=== PATIENT | female | born 1990 | race Two or more races ===

== ENCOUNTER → 2020-12-24 15:05 | Outpatient (BNVA) | payer OTHER, SELFPAY | PROVIDERS: Visit Provider Internal Medicine | DX: K29.70 Gastritis, unspecified, without bleeding (principal); B96.81 Helicobacter pylori [H. pylori] as the cause of diseases classified elsewhere | CPT/HCPCS: 99202 ==

== ENCOUNTER → 2022-03-23 14:49 | Outpatient (BNVA) | payer OTHER, SELFPAY | PROVIDERS: Visit Provider Nurse Practitioner Family | DX: G43.909 Migraine, unspecified, not intractable, without status migrainosus (principal); G44.309 Post-traumatic headache, unspecified, not intractable; F07.81 Postconcussional syndrome; M54.2 Cervicalgia | CPT/HCPCS: 99202 ==

== ENCOUNTER 2022-04-21 15:14 | Outpatient (REF) | payer OTHER, SELFPAY ==
--- NOTE | ~2022-04-21 | XR_ITS ---
EXAMINATION: XR CERVICAL SPINE CLINICAL INFORMATION: Cervicalgia COMPARISON: None TECHNIQUE: 6 views of the cervical spine, inclusive of flexion and extension views, were obtained. FINDINGS: The vertebral alignment is normal. No intrinsic bony abnormality. The disc heights and neural foramina are well maintained. The endplates and posterior elements are normal. No fracture or subluxation. The surrounding prevertebral soft tissues are unremarkable. XR/XR cervical spine w flex/ext IMPRESSION: Normal examination of the cervical spine.
== END 2022-04-21 15:15 | disposition home or self-care (01) ==
LOC: HO.XRAY 15:14
PROVIDERS: PCP Internal Medicine; Visit Provider Nurse Practitioner Family
DX: M54.2 Cervicalgia (principal)
CPT/HCPCS: 72052

== ENCOUNTER → 2022-05-28 14:20 | Outpatient (BNVA) | payer OTHER, SELFPAY | PROVIDERS: PCP Internal Medicine; Visit Provider Nurse Practitioner Family | DX: G43.909 Migraine, unspecified, not intractable, without status migrainosus (principal); M54.2 Cervicalgia; M26.609 Unspecified temporomandibular joint disorder, unspecified side; F07.81 Postconcussional syndrome; F45.8 Other somatoform disorders | CPT/HCPCS: 99212 ==

== ENCOUNTER 2024-04-26 13:52 | Outpatient (REF) | payer OTHER, SELFPAY ==
[2024-04-26 17:36] LABS: MANUAL DIFF FLAG NO
[2024-04-26 17:57] LABS: Basophils Percent Auto 0.6 % (0-2); Eosinophils Absolute Auto 0.1 X10*3/uL (0.0-0.4); Eosinophils Percent Auto 2.3 % (0-4); Hematocrit 35.2 % (37.0-47.0); Imm Gran Abs Auto 0.01 X10*3/uL (0.00-0.03); Imm Gran Pct Auto 0.2 % (0.0-0.4); Lymphocytes Absolute Auto 2.3 X10*3/uL (1.2-4.9); Mean Corpuscular HGB Conc 31.3 g/dl (31.0-35.0); Mean Corpuscular Hemoglobin 27.9 pg (27.0-33.0); Mean Corpuscular Volume 89.3 fL (80.0-98.0); Mean Platelet Volume 10.7 fL (9.4-12.3); Monocytes Absolute Auto 0.4 X10*3/uL (0.1-1.2); Monocytes Percent Auto 8.4 % (2-11); Neutrophils Absolute Auto 1.9 x10*3/uL (2.0-8.3); Neutrophils Percent Auto 39.5 % (45-73); Platelet Count 208 X10*3/uL (160-400); Red Blood Count 3.94 X10*6/uL (4.20-5.50); Red Cell Distribution Width 13.1 % (11.0-16.0); White Blood Count 4.8 X10*3/uL (4.8-10.8)
[2024-04-26 18:11] LABS: Rheumatoid Factor < 13.0 IU/mL (<15.0)
[2024-04-26 18:41] LABS: Folate 6.1 ng/mL (> or = 4.0); Vitamin B12 675 pg/mL (200-900)
[2024-04-26 18:46] LABS: Erythrocyte Sedimentation Rate 25 MM/HR (0-20)
[2024-04-26 19:31] LABS: Alanine Aminotransferase 35 U/L (0-31); Albumin Level 4.1 g/dL (3.5-5.0); Alkaline Phosphatase 48 U/L (39-117); Anion Gap 13 (12-20); Aspartate Amino Transferase 26 U/L (5-31); Bilirubin Total 0.2 mg/dL (0.0-1.0); Blood Urea Nitrogen 12 mg/dL (9-16); Carbon Dioxide 25 mmol/L (22-29); Chloride 107 mmol/L (96-108); Estimated Glomerular Filt Rate > 60; Glucose Random 57 mg/dL (60-115); Potassium 4.2 mmol/L (3.3-5.1); Sodium 141 mmol/L (135-145); Total Protein 7.4 g/dL (6.5-8.0)
[2024-04-27 19:19] LABS: CRP High Sensitivity 1.1 mg/L
[2024-04-30 09:33] LABS: Anti Nuclear Antibody Screen NEGATIVE (NEGATIVE)
== END 2024-04-26 13:53 | disposition home or self-care (01) ==
LOC: HO.HKASLDS 13:52
PROVIDERS: PCP Internal Medicine Hematology & Oncology; Visit Provider Nurse Practitioner Family
DX: G44.85 Primary stabbing headache (principal); D50.9 Iron deficiency anemia, unspecified
CPT/HCPCS: 36415; 80053; 82607; 82746; 85025; 85652; 86038; 86141; 86431; 99212

== ENCOUNTER 2024-04-26 13:52 | Outpatient (AMB) | payer OTHER, SELFPAY ==
[2024-04-26 13:57] VITALS: BP 107/70; PULSE 65; O2SAT 99; BMI 23.9
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
== END 2024-04-26 15:00 | disposition home or self-care (01) ==
PROVIDERS: PCP Internal Medicine Hematology & Oncology; Visit Provider Nurse Practitioner Family
DX: M26.609 Unspecified temporomandibular joint disorder, unspecified side (principal); F45.8 Other somatoform disorders; R22.0 Localized swelling, mass and lump, head; F07.81 Postconcussional syndrome; M54.2 Cervicalgia; G44.85 Primary stabbing headache
CPT/HCPCS: 99214

== ENCOUNTER 2024-06-25 13:44 | Outpatient (REF) | payer OTHER, SELFPAY ==
--- NOTE | ~2024-06-25 | MR_ITS ---
EXAMINATION: MR BRAIN WITHOUT AND WITH CONTRAST CLINICAL INFORMATION: Stabbing headache. COMPARISON: None available. TECHNIQUE: Multiplanar, multisequence MRI of the brain was obtained before and after the intravenous administration of 5.5 mL of Gadavist. FINDINGS: There is no restricted diffusion visualized to suspect any acute ischemic changes. No magnetic susceptibility artifact either to suspect acute or chronic hemorrhagic products or calcium there is focal T2 FLAIR signal change in the deep white matter of right frontal lobe without mass effect. The otto to white matter differentiation is maintained normal. The lateral ventricles are symmetrical but generous in size. There is asymmetric enlarged left inferior cerebellar hemisphere with a prominent right para midline cisterna magna. There is normal flow-void signal seen in major cerebral vasculature. Sella and parasellar regions are normal. There is moderate mucoperiosteal thickening left maxillary sinus. Rest of the paranasal sinuses are widely patent. The mastoid sinuses are clear. The bone marrow signal and the scalp soft tissues are normal. Bilateral optic globe, optic nerves are symmetrical and normal. Incidental finding of deviated nasal septum to right with hypertrophic left inferior turbinate. Post gadolinium there is no intra-axial or extra-axial enhancement or masses. MR/MR head/brain wo/w con IMPRESSION: No acute intracranial process seen. Asymmetric hypovolemic right cerebral hemisphere with prominent right para midline cisterna magna. Deviated nasal septum to the right with hypertrophic left inferior turbinate. Chronic inflammatory process left maxillary sinus. Electronically signed by: Chalo Delcid MD 06/27/2024 08:47 AM EDT
[2024-06-25] MEDS: gadobutroL 7.5 ML VIAL IVPUSH (14:27)
== END 2024-06-25 13:45 | disposition home or self-care (01) ==
LOC: HO.MRI 13:44
PROVIDERS: PCP Internal Medicine; Visit Provider Nurse Practitioner Family
DX: G44.85 Primary stabbing headache (principal); R22.0 Localized swelling, mass and lump, head; G44.309 Post-traumatic headache, unspecified, not intractable
CPT/HCPCS: 70553; A9585

== ENCOUNTER → 2024-06-25 13:44 | Outpatient (BNV) | payer OTHER, SELFPAY | PROVIDERS: PCP Internal Medicine; Visit Provider Radiology Diagnostic Radiology | DX: J34.2 Deviated nasal septum (principal); I69.351 Hemiplegia and hemiparesis following cerebral infarction affecting right dominant side; J32.0 Chronic maxillary sinusitis | CPT/HCPCS: 70553 ==

== ENCOUNTER 2024-07-31 13:38 | Outpatient (REF) | payer OTHER, SELFPAY ==
--- NOTE | ~2024-07-31 | MR_ITS ---
EXAMINATION: MR VENOGRAM BRAIN WITH IV CONTRAST. CLINICAL INFORMATION: Primary stabbing headache. TECHNIQUE: Coronal 2-D [id number]. Sagittal and coronal vessel PC. Sagittal twist. Total of 10 cc gadolinium-based given IV without reported immediate complications COMPARISON: None FINDINGS: Superior sagittal sinus is patent without intraluminal filling defect. Internal cerebral veins are patent without intraluminal filling defects. Vein of Manuel and straight sinus are patent without intraluminal filling defects. Torcula is patent without intraluminal filling defect. Transverse sinuses, sigmoid sinuses and jugular bulbs are patent without intraluminal filling defects. Asymmetric volume loss right cerebellum. MR/MR venography head wo/w con IMPRESSION: No main cerebral venous sinus thrombosis. Negative exam. Electronically signed by: Jose Manuel [place] MD 08/01/2024 07:14 AM EDT
[2024-07-31] MEDS: gadobutroL 10 ML VIAL IVPUSH (14:10)
--- OUTSIDE RECORDS SUMMARY | 2024-07-31 15:48 | XMS_ITS | Encounter Summary ---
Author Organization [place] [address] Care Team Providers Care Field Representatives Director Name Role Phone Sheng May MD Primary Care Provider [phone] Reason for Visit * Reason Onset Date Comments Labs Only 07/27/2024 Encounter Details Date Type Department Care Team (Late st Contact Info) Description 07/27/2024 Telephone Adult Medicine [address] [phone] Sheng May MD [address] [place] [id number] Labs Only Social History Tobacco Use Types Packs/Day Years Used Date Smoking Tobacco: Former Cigarettes Q uit: 11/26/2012 Smokeless Tobacco: Never Alcohol Use Standard Drinks/Week Comments Yes 0 (1 standard drink = 0.6 oz pur e alcohol) Comments No Sex and Gender Information Value Date Recorded Sex Assigned at Not on file Legal Sex Female 5:31 AM EST Gender Identity Not on file Sexual Orientation Not on file documented as of this encounter Progress Notes * Sheng May MD - 07/27/2024 5:38 PM EDT Please inform the patient that QuantiFERON test is ordered and she can go to the lab anytime * Liberty Mendez MA - 07/27/2024 4:00 PM EDT Last OV/ PE 03/29/24 Lalo OV none scheduled. * Veronica Betancourt - 07/27/2024 3:27 PM EDT Patient needs Quantiferon Gold ordered for employer. Please call patient when ordered. Needs SHAYNE. documented in this encounter Plan of Treatment Upcoming Encounters Date Type Department Care Team (Late st Contact Info) Description 10/31/2024 10:55 AM EDT Appointment Radiology Department [address] [phone] Scheduled Orders Name Type Priority Associated Diagnoses Orde r Schedule Interferon gamma for TB, qualitative Lab Routine Encounter for pre-employment examination 1 Occurrences starting 07/27/2024 until 07/27/2025 documented as of this encounter Visit Diagnoses Diagnosis Encounter for pre-employment examination- Primary documented in this encounter Care Teams Field Representatives Director Relationship Specialty Start Date End Date Sheng May MD [address] [place] [address] PCP - General Internal Medicine 10/01/21 documented as of this encounter
--- OUTSIDE RECORDS SUMMARY | 2024-07-31 15:48 | XMS_ITS | Clinical Summary ---
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 4 Active omeprazole-amoxic ill-rifabutin (Talicia) 10-250-12.5 mg capsule,IR - delay rel,biphase Take 4 capsules by mouth every 8 (eight) hours. 4 Active aspirin-acetamino phen-caffeine (EXCEDRIN MIGRAINE) 250-250-65 mg per tablet Take 1 Tablet by mouth every 6 hours as needed (mild to moderate headaches). 4 Active docusate sodium (COLACE) 100 mg capsule Take 1 Capsule by mouth 2 times daily as needed for Constipation. 4 Active SUMAtriptan (IMITREX) 50 mg tablet Take 1 tablet for severe headache, may repeat dose once after 2 hours, if needed. 4 Active albuterol HFA (PROAIR HFA ; PROVENTIL HFA ; VENTOLIN HFA) 90 mcg/actuation inhalerIndication s:Mild intermittent asthma without complication Inhale 2 puffs by mouth every 4 (four) hours if needed for wheezing (or cough). 6.7 g 3 4 Active cholecalciferol (VITAMIN D-3) 50 mcg (2,000 unit) tablet Take 1 tablet (2,000 Units total) by mouth 1 (one) time each day. 90 tablet 3 4 Active FLUoxetine (PROzac) 10 mg tablet Take 1 tablet (10 mg total) by mouth 1 (one) time each day. 90 tablet 1 4 Active magnesium oxide (MAG-OX) 400 mg (241.3 elemental magnesium) tablet Take 1 tablet (400 mg total) by mouth 1 (one) time each day. 90 tablet 3 4 Active riboflavin (VITAMIN B2) 400 mg tablet Take 1 tablet (400 mg total) by mouth 1 (one) time each day. 90 tablet 3 4 Active omeprazole (PriLOSEC) [address] capsule Take 1 capsule (40 mg total) by mouth 1 (one) time each day. 90 capsule 1 4 Active cyanocobalamin (VITAMIN B-12) 1,000 mcg tablet Take 1 tablet (1,000 mcg total) by mouth 1 (one) time each day. 90 tablet 3 4 03/29/20 25 Active nicotine (NICODERM CQ) 14 mg/[address] 1 patch on the skin 1 (one) time each day at the same time. 30 each 1 4 Active ferrous sulfate 325 mg (65 mg iron) EC tablet Take 1 tablet (325 mg total) by mouth 1 (one) time each day with breakfast. Do not crush, chew, or split. 90 each 1 4 Active folic acid (FOLVITE) 1 mg tablet Take 1 tablet (1 mg total) by mouth 1 (one) time each day. 90 each 1 4 Active vit,jelena 63-tynk-juddq 27 mg iron- 1 mg tablet Take 1 tablet by mouth 1 (one) time each day. 30 each 5 04/27/19 26 Active Active Problems Problem Noted Date Diagnosed Date Nephrolithiasis 03/09/2024 Constipation 02/02/2024 Migraine without status migrainosus, not intract able 02/02/2024 Dysphagia 01/18/2024 H. pylori infection 01/18/2024 Helicobacter positive gastritis 01/18/2024 Gastroesophageal reflux disease without esophagi tis 04/28/2023 Prediabetes 04/28/2023 Marijuana use during 10/30/2022 Overview (01/18/2024): 10/30/22: states using for nausea; encouraged to d/c use; risks reviewed. Will try vit B6 and unisom Breast tenderness 06/11/2022 Overview (01/18/2024): Last Assessment & Plan: Patient instructed to avoid fatty foods and caffeine in her diet. Encouraged to wear a tight fitting bra. Reassured that exam is normal today. Wheezing 10/10/2020 ASCUS with positive high risk HPV cervical 07/08 Overview (01/18/2024): 06/26/2016 [place]ear ASCUS HR HPV + 05/26/2019 Paps[place]ear ASCUS HR HPV + 07/25/2019 Colposcopy DANNIELLE 2-3 08/03/2019 LEEP DANNIELLE 2 negative margins 11/07/2020 [place] NSIL HR HPV NEG B12 deficiency 12/20/2014 Overview (01/18/2024): BOderline def. -IM injections at time of Iron infusion Iron deficiency anemia 12/20/2014 Overview (01/18/2024): Pt undergoing Iron infusion at [facility] S/p Hem consult --PICA eating Ice and Talcum powder have resolved and labs improved ---cont to take IRON daily for at least 3 months pp, as per Heme recommendations 01/31/2015 Ferrous gluconate ordered Left ovarian cyst 07/04/2014 Calculus of kidney 01/13/2013 Anxiety 07/14/2011 Back pain 05/15/2011 Encounters Date Type Department Care Team Description 07/27/2024 Telephone Adult [address] [phone] Sheng May MD Labs Only 05/11/2024 Telephone Obstetrics and Gynecology - [place] [address] [place] [id number] Zamzam Casillas MA Med Change Request 05/05/2024 9:30 AM EST - 05/05/2024 11:59 PM EST Hospital Encounter Radiology Department - [address] [phone] Mass of upper outer quadrant of left breast Discharge Disposition: Home or Self Care 05/05/2024 8:59 AM EST - 05/05/2024 11:59 PM EST Hospital Encounter Radiology Department - [address] [phone] Mass of upper outer quadrant of left breast Discharge Disposition: Home or Self Care 05/03/2024 9:54 AM EST - 05/03/2024 11:59 PM EST Hospital Encounter Radiology Department - [address] [phone] Mass of upper outer quadrant of left breast Discharge Disposition: Home or Self Care 05/03/2024 9:54 AM EST - 05/03/2024 11:59 PM EST Hospital Encounter Radiology Department - [address] [phone] Mass of upper outer quadrant of left breast Discharge Disposition: Home or Self Care from Last 3 Months Immunizations Name Administration Dates Next Due Hepatitis B (Dofgacc-M-Waciy , Recombivax HB-Adult) 19yo and older 11/13/2020 Influenza Quadravalent, MDCK , 0.5ml, preservative free (Flucelvax) 6mo and older 03/14/2019 Influenza trivalent, 0.5mL ( Fluzone High-dose) 65yo and older 02/19/2023 Influenza trivalent, 0.5mL, preservative free (Fluarix; FluLaval; Fluzone) ages 6mo and older (Afluria) 3 years and older 01/17/2015 Influenza trivalent, MDCK, 0 .5mL, preservative free (Flucelvax) 6mo and older 03/29/2024 Influenza trivalent, with pr eservative (Fluzone; Afluria) 6mo and older 12/27/2012 PPD Test 09/25/2020,12/27/2012 Tdap Tetanus diptheria acell ular pertussis (Boostrix; Adacel) 7yo and older 01/17/2015,07/14/2011 Surgical History Surgery Date Site/Laterality Comments OTHER SURGICAL HISTORY PROCEDURE: OK PUNCTURE ASPIRATION CYST OF BREAST OTHER SURGICAL HISTORY 08/03/2019 PROCEDURE: CERVICAL LEEP CONE BIOPSY [facility] PATHOLOGY EX; COMMENT: DANNIELLE 2-3 STEREOTACTIC CORE BIOPSY Medical History Medical History Date Comments Anxiety 07/14/2011 DX:Anxiety Nausea DX:Nausea Postprandial epigastric pain DX: Postprandial epigastric pain Abdominal bloating DX:Abdominal bloating Helicobacter positive gastritis DX:Helicobacter positive gastritis Abdominal discomfort in left lower quadrant DX:Abdominal discomfort in l eft lower quadrant Abdominal cramping DX:Abdominal cramping Kidney stones DX:Kidney stones Straining with stools DX:Straini ng with stools H. pylori infection DX:H. pylori infection Depressive disorder DX:Depressiv e disorder Epigastric pain DX:Epigastric pa in History of Helicobacter pylo ri infection DX:History of Helicobacter p ylori infection Esophageal reflux DX:Esophageal reflux Dysphagia DX:Dysphagia History of migraine headaches DX :History of migraine headaches Gastritis DX:Gastritis Globus sensation DX:Globus sensa tion GERD (gastroesophageal reflu x disease) DX:GERD (gastroesophageal re flux disease) Nausea DX:Nausea Mild intermittent asthma, uncomplicated DX:Mild intermittent asthma, uncomplicated Migraine headache Family History Medical History Relation Name Comments Other: Other Aunt myopia No Known Problems Father No Known Problems Maternal Grandfather Cataracts Maternal Grandmother Diabetes Maternal Grandmother Hypertension Maternal Grandmother Hypertension Mother No Known Problems Paternal Grandfather No Known Problems Paternal Grandmother No Known Problems Sister 1 No Known Problems Sister 2 Blindness Neg Hx Glaucoma Neg Hx Macular degeneration Neg Hx Strabismus Neg Hx Relation Name Status Comments Aunt Father Alive healthy Maternal Grandfather Alive Maternal Grandmother Alive Mother Alive healthy Paternal Grandfather Alive Paternal Grandmother Alive Sister 1 Alive 20 Sister 2 Alive 24 Social History Tobacco Use Types Packs/Day Years Used Date Smoking Tobacco: Former Cigarettes Q uit: 11/26/2012 Smokeless Tobacco: Never Tobacco Cessation:Counseling Given: Not Answered Alcohol Use Standard Drinks/Week Comments Yes 0 (1 standard drink = 0.6 oz pur e alcohol) Comments No Sex and Gender Information Value Date Recorded Sex Assigned at Not on file Legal Sex Female 5:31 AM EST Gender Identity Not on file Sexual Orientation Not on file Obstetrics History Para Term AB IAB SAB Ectopic Multiple Livin g Live Births 10 2 2 0 6 5 1 0 0 2 2 Date Outcome GA Total Labor Labor/2nd/3rd Weight Sex Type Anes PTL Christy A1 A5 Name Clin 2009 Term 40w 0d 3175 g (112 oz) M Vag-Sp ont None Livin g Comments:Patsy 2010 SAB 16w 0d Comments:Patsyhughow n 2011 IAB 6w0 d 2012 IAB 2014 Term 41w 0d 2h 37m/ 3487 g (123 oz) F Vag-Sp ont None Livin g 8 9 A Clements [facility] Delivery Location:[facility] 9 IAB 2021 IAB 2022 IAB 6w0 d Surgic al Dung Last Filed Vital Signs Vital Sign Reading Time Taken Comments Blood Pressure 91/57 04/27/2024 10:52 AM EST Pulse 90 04/27/2024 10:52 AM EST Temperature 36.2 ??C (97.2 ??F) 03/29/2024 8:24 AM ES T Respiratory Rate 14 04/27/2024 10:52 AM EST Oxygen Saturation 97% 03/19/2024 8:15 AM EST Inhaled Oxygen Concentration - - Weight 57.3 kg (126 lb 6.4 oz) 04/27/2024 10:52 AM EST Height 154.9 cm (5' 1 ) 04/27/2024 10:52 AM EST Body Mass Index 23.88 04/27/2024 10:52 AM EST Plan of Treatment Upcoming Encounters Date Type Department Care Team (Late st Contact Info) Description 10/31/2024 10:55 AM EDT Appointment Radiology Department [address] [phone] Health Maintenance Due Date Last Done Comments Pneumococcal Vaccine: Pediatrics (0 to 5 Years) and At-Risk Patients (6 to 64 Years) (1 of 2 - PCV) 07/12/2010 Hepatitis B Vaccines (2 of 3 - 19+ 3-dose series) 12/11/2020 11/13/2020 COVID-19 Vaccine ( season) 2023 05/20/2021, 09/27/2020, 09/07/2020 Social Influencers of Health Screening 04/28/2024 04/28/2023 Depression Screening 12/20/2024 12/21/2023, 12/21/19 Cervical Cancer Screening: HPV 06/11/2027 06/11/2022 Cholesterol Screening (Lipid Panel) 03/29/2029 03/29/2024, 02/22/2023, 02/22/2023 DTaP,Tdap,and Td Vaccines (5 - Td or Tdap) 02/16/2032 02/15/2022, 01/17/2015, 07/14/2011, Additional history exists MMR Vaccines Aged Out 03/01/2015 No longer eligi ble based on patient's age to complete this topic Influenza Vaccine Completed 03/29/2024, , 03/14/2019, Additional history exists HIV Screening Completed 04/27/2024, 02/22/2023 Hepatitis C Screening Completed 04/27/2024, 023 HIB Vaccines Aged Out No longer eligi ble based on patient's age to complete this topic HPV Vaccines Aged Out No longer eligi ble based on patient's age to complete this topic Hepatitis A Vaccines Aged Out No long er eligible based on patient's age to complete this topic IPV Vaccines Aged Out No longer eligi ble based on patient's age to complete this topic Meningococcal ACWY Vaccine Aged Out N o longer eligible based on patient's age to complete this topic Meningococcal B Vaccine Aged Out No l onger eligible based on patient's age to complete this topic RSV Immunization Patients Under 20 months Aged Out No longer eligible based on patient's age to complete this topic Varicella Vaccines Aged Out No longer eligible based on patient's age to complete this topic Procedures Procedure Name Priority Date/Time Associated Diagnosis Comments EXTERNAL MRI REPORT 06/25/2024 EXTERNAL MRI REPORT 06/25/2024 US BX BREAST PERC 1ST LESION LEFT Routine 05/05/2024 9:41 AM EST Mass of upper outer quadrant of left breast MG MAMMO DIGITAL DIAGNOSTIC CLIP POST US/MR GUIDE LEFT Routine 05/05/2024 9:37 AM EST Mass of upper outer quadrant of left breast TISSUE EXAM Routine 05/05/2024 9:30 AM EST Mass of upper outer quadrant of left breast US BREAST LIMITED BILAT Routine 05/03/2024 10:45 AM EST Mass of upper outer quadrant of left breast MG MAMMO DIGITAL DIAGNOSTIC W JOHNSON BILAT Routine 05/03/2024 10:34 AM EST Mass of upper outer quadrant of left breast HEPATITIS C ANTIBODY Routine 04/27/2024 11:41 AM EST Screen for STD (sexually transmitted disease) HIV 1, 2 ANTIBODY, P24 ANTIGEN WITH REFLEX TO DIFFERENTIATION Routine 04/27/2024 11:41 AM EST Screen for STD (sexually transmitted disease) LIPID PANEL WITH REFLEX TO DIRECT LDL Routine 03/29/2024 9:17 AM EST Physical exam Screening for hyperlipidemia HM DEPRESSION SCREENING Routine 12/21/2023 HM HPV Routine 06/11/2022 from Last 3 Months or Most Recently Relevant to Health Maintenance Results * External MRI Report (06/25/2024) Only the most recent of2 resultswithin the time period is included. Anatomical Region Laterality Modality Magnetic Resonan ce us Provider [facility] MRI PROCEDURES Final Result * US Bx Breast Perc 1st Lesion Left (05/05/2024 9:41 AM EST) Anatomical Region Laterality Modality Breast Left Ultrasound 05/05/2024 10:4 8 AM EST Addenda Addendum by Candis Atkinson MD on 05/08/2024 11:46 AM EST Addendum: Left breast, 2 o'clock, 4 cm from nipple, heart clip, ultrasound-guided core biopsy: ?Fibroadenoma ?No atypia or malignancy identified Pathology is concordant with imaging findings. ??Given the benign pathology, six-month follow-up ultrasound is recommended for the smaller adjacent lesion as described in the diagnostic mammogram report. Results and recommendation for 6 month follow-up ultrasound discussed with the patient by telephone on 05/08/2024 at 11:40 AM. ??Patient desires surgical consultation to discuss excision of the mass as it is symptomatic for her. ??Secure message sent to Tiffany Quiles, nurse navigator at the [facility], who will arrange surgical consultation for the patient. -------- ADDENDUM -------- Dictated By: Candis Atkinson Dictated Date: 05/08/2024 11:36 ET Assigned Physician: Candis Atkinson Reviewed and Electronically Signed By: Candis Atkinson Signed Date: 05/08/2024 11:46 ET Workstation ID: [id number] Transcribed By: Self Edit Transcribed Date: 05/08/2024 11:36 ET Impressions 05/05/2024 11:30 AM EST Seemingly successful ultrasound-guided core biopsy of a left breast lesion. ??Pathologic analysis is pending. POS - [id number] -------- FINAL REPORT -------- Dictated By: Candis Atkinson Dictated Date: 05/05/2024 10:48 ET Assigned Physician: Candis Atkinson Reviewed and Electronically Signed By: Candis Atkinson Signed Date: 05/05/2024 11:30 ET Workstation ID: [id number] Transcribed By: Self Edit Transcribed Date: 05/05/2024 10:54 ET Narrative 05/05/2024 11:30 AM EST EXAM: Ultrasound-guided core biopsy and unilateral digital diagnostic mammogram left breast. FINDINGS: Patient presents for ultrasound-guided biopsy of a 2.0 x 1.7 x 1.2 cm lesion at the 2 o'clock position of the left breast. ??Prior imaging from 05/03/2024 was reviewed. ??Risks and benefits of the procedure including specific risks of hemorrhage and infection were discussed with the patient before beginning the procedure. ??Written and verbal consent to proceed were given. ?? The overlying skin was prepped with betadine and anesthetized with 1% buffered lidocaine. ??A skin sofi was then made. ??Using ultrasound guidance, 5 passes were made into the lesion using a 14 gauge Bard Marquee needle. ??A heart marker was deployed in the lesion. ??No immediate complications. ??No postprocedural hematoma. Unilateral left digital diagnostic mammogram was performed following ultrasound-guided biopsy with clip placement. New biopsy marker in the upper outer breast which corresponds with the focal asymmetry of concern indicating concordance of the mammographic and sonographic findings. ??No significant hematoma is present. Procedure Note Candis Atkinson MD - 05/05/2024 EXAM: Ultrasound-guided core biopsy and unilateral digital diagnosticmammogram left breast. FINDINGS: Patient presents for ultrasound-guided biopsy of a 2.0 x 1.7 x 1.2 cmlesion at the 2 o'clock position of the left breast. Prior imaging from05/03/2024 was reviewed. Risks and benefits of the procedure includingspecific risks of hemorrhage and infection were discussed with the patientbefore beginning the procedure. Written and verbal consent to proceedwere given. The overlying skin was prepped with betadine and anesthetized with 1%buffered lidocaine. A skin sofi was then made. Using ultrasoundguidance, 5 passes were made into the lesion using a 14 gauge Bard Marqueeneedle. A heart marker was deployed in the lesion. No immediatecomplications. No postprocedural hematoma. Unilateral left digital diagnostic mammogram was performed followingultrasound- guided biopsy with clip placement. New biopsy marker in theupper outer breast which corresponds with the focal asymmetry of concernindicating concordance of the mammographic and sonographic findings. Nosignificant hematoma is present. IMPRESSION: Seemingly successful ultrasound-guided core biopsy of a left breastlesion. Pathologic analysis is pending. POS - [id number] -------- FINAL REPORT -------- Dictated By: Candis Atkinson Dictated Date: 05/05/2024 10:48 ET Assigned Physician: Candis Atkinson Reviewed and Electronically Signed By: Candis Atkinson Signed Date: 05/05/2024 11:30 ET Workstation ID: [id number] Transcribed By: Self Edit Transcribed Date: 05/05/2024 10:54 ET us [facility] IMG US PROCEDURES Edited Res ult - Final * MG Mammo Digital Diagnostic Clip Post US/MR Guide Left (05/05/2024 9:37 AM EST) Anatomical Region Laterality Modality Breast Left Mammography 05/05/2024 10:4 8 AM EST Addenda Addendum by Candis Atkinson MD on 05/08/2024 11:46 AM EST Addendum: Left breast, 2 o'clock, 4 cm from nipple, heart clip, ultrasound-guided core biopsy: ?Fibroadenoma ?No atypia or malignancy identified Pathology is concordant with imaging findings. ??Given the benign pathology, six-month follow-up ultrasound is recommended for the smaller adjacent lesion as described in the diagnostic mammogram report. Results and recommendation for 6 month follow-up ultrasound discussed with the patient by telephone on 05/08/2024 at 11:40 AM. ??Patient desires surgical consultation to discuss excision of the mass as it is symptomatic for her. ??Secure message sent to Tiffany Quiles, nurse navigator at the [facility], who will arrange surgical consultation for the patient. -------- ADDENDUM -------- Dictated By: Candis Atkinson Dictated Date: 05/08/2024 11:36 ET Assigned Physician: Candis Atkinson Reviewed and Electronically Signed By: Candis Atkinson Signed Date: 05/08/2024 11:46 ET Workstation ID: [id number] Transcribed By: Self Edit Transcribed Date: 05/08/2024 11:36 ET Impressions 05/05/2024 11:30 AM EST Seemingly successful ultrasound-guided core biopsy of a left breast lesion. ??Pathologic analysis is pending. POS - [id number] -------- FINAL REPORT -------- Dictated By: Candis Atkinson Dictated Date: 05/05/2024 10:48 ET Assigned Physician: Candis Atkinson Reviewed and Electronically Signed By: Candis Atkinson Signed Date: 05/05/2024 11:30 ET Workstation ID: [id number] Transcribed By: Self Edit Transcribed Date: 05/05/2024 10:54 ET Narrative 05/05/2024 11:30 AM EST EXAM: Ultrasound-guided core biopsy and unilateral digital diagnostic mammogram left breast. FINDINGS: Patient presents for ultrasound-guided biopsy of a 2.0 x 1.7 x 1.2 cm lesion at the 2 o'clock position of the left breast. ??Prior imaging from 05/03/2024 was reviewed. ??Risks and benefits of the procedure including specific risks of hemorrhage and infection were discussed with the patient before beginning the procedure. ??Written and verbal consent to proceed were given. ?? The overlying skin was prepped with betadine and anesthetized with 1% buffered lidocaine. ??A skin sofi was then made. ??Using ultrasound guidance, 5 passes were made into the lesion using a 14 gauge Bard Marquee needle. ??A heart marker was deployed in the lesion. ??No immediate complications. ??No postprocedural hematoma. Unilateral left digital diagnostic mammogram was performed following ultrasound-guided biopsy with clip placement. New biopsy marker in the upper outer breast which corresponds with the focal asymmetry of concern indicating concordance of the mammographic and sonographic findings. ??No significant hematoma is present. Procedure Note Candis Atkinson MD - 05/05/2024 EXAM: Ultrasound-guided core biopsy and unilateral digital diagnosticmammogram left breast. FINDINGS: Patient presents for ultrasound-guided biopsy of a 2.0 x 1.7 x 1.2 cmlesion at the 2 o'clock position of the left breast. Prior imaging from05/03/2024 was reviewed. Risks and benefits of the procedure includingspecific risks of hemorrhage and infection were discussed with the patientbefore beginning the procedure. Written and verbal consent to proceedwere given. The overlying skin was prepped with betadine and anesthetized with 1%buffered lidocaine. A skin sofi was then made. Using ultrasoundguidance, 5 passes were made into the lesion using a 14 gauge Bard Marqueeneedle. A heart marker was deployed in the lesion. No immediatecomplications. No postprocedural hematoma. Unilateral left digital diagnostic mammogram was performed followingultrasound- guided biopsy with clip placement. New biopsy marker in theupper outer breast which corresponds with the focal asymmetry of concernindicating concordance of the mammographic and sonographic findings. Nosignificant hematoma is present. IMPRESSION: Seemingly successful ultrasound-guided core biopsy of a left breastlesion. Pathologic analysis is pending. POS - [id number] -------- FINAL REPORT -------- Dictated By: Candis Atkinson Dictated Date: 05/05/2024 10:48 ET Assigned Physician: Candis Atkinson Reviewed and Electronically Signed By: Candis Atkinson Signed Date: 05/05/2024 11:30 ET Workstation ID: [id number] Transcribed By: Self Edit Transcribed Date: 05/05/2024 10:54 ET us Joselyn [facility]CRAY IMG BI PROCEDURES Edited Res ult - Final * Tissue exam (05/05/2024 9:30 AM EST) Final Diagnosis Left breast, 2 o'clock, 4 cm from nipple, heart clip, ultrasound-guide d core biopsy: Fibroadenoma No atypia or malignancy identified 05/08/2024 8:58 AM [facility] Clinical Information LT BREAST 2:00 ? Fibroadenoma vs cancer Heart clip Lot# [id number] 05/08/2024 8:58 AM [facility] Gross Description A. Breast, Left, Lt 2:00 breast: Labeled LT 2:00 breast . Received in formalin, wrapped in Telfa, is a 1.5 x 0.7 x 0.15 cm aggregate of soft to rubbery, thin, yellow-white fibrofatty tissue cores, which are submitted in toto, between sponges, in one cassette, multiple pieces, x 3. Time removed from patient (warm ends < cold ischemia starts): 9:30 AM 05/05/2024 Time put in formalin (cold ischemia ends): 9:32 AM 05/05/2024 Total cold ischemic time: 2 minutes Time tissue exits final stage of formalin on tissue processor: 05/08/2024 Total fixation time (Ideally greater than 6 hours and less than 72 hours): Approximately 62.5 hours TS 05/08/2024 8:58 AM EST [facility] Disclaimer Unless otherwise specified, all tissue is 10% NB formalin fixed and paraffin embedded. 05/08/2024 8:58 AM EST [facility] Tissue Left breast structure / Unknown 05/05/2024 9:30 AM EST 05/05/2024 4:32 PM EST Comment:LT BREAST 2:00 ? Fib roadenoma vs cancer Heart clip Lot# [id number] us Candis Atkinson MD LAB PATHOLOGY ORDERABLES Final R esult [facility] ([facility] [address] [place] [address], [place] [phone] * (ABNORMAL) US Breast Limited bilat (05/03/2024 10:45 AM EST) Anatomical Region Laterality Modality Breast Bilateral Ultrasound 05/03/2024 10:4 6 AM EST Impressions 05/03/2024 11:34 AM EST RIGHT BREAST: Negative, no evidence of malignancy. LEFT BREAST: 1. ??Palpable concern correlates with 2.0 cm hypoechoic solid mass at 2 o'clock position at 4 cm from the nipple. ??Suspicious findings. ??An ultrasound-guided needle core biopsy is recommended. 2. ??Additional 1.0 cm solid mass at 2 o'clock position at 4 cm from the nipple. ??Probably benign. ??A 6-month follow-up ultrasound is recommended. ??However, depending on the pathology results of the above biopsy, management may change. Findings and recommendations were discussed with the patient. ?? BREAST DENSITY: D - The breasts are extremely dense which lowers the sensitivity of mammography. ?? BI-RADS CATEGORY: 4 - SUSPICIOUS RECOMMENDATION: Mammography: Core biopsy of ??left breast recommended. Clinical management of right breast is recommended. Ultrasound: Core biopsy of ??left breast recommended. Mammo Location: [facility], [address] [place] [address], [id number], . -------- FINAL REPORT -------- Dictated By: Rishi Archer Dictated Date: 05/03/2024 10:46 ET Assigned Physician: Rishi Archer Reviewed and Electronically Signed By: Rishi Archer Signed Date: 05/03/2024 11:34 ET Workstation ID: [id number] Transcribed By: Self Edit Transcribed Date: 05/03/2024 11:15 ET Narrative 05/03/2024 11:34 AM EST HISTORY: Left breast mass in the upper-outer quadrant. ??Office visit on April 27, 2024 describes left breast mass at 2 o'clock position. ??Report in Epic of right breast ultrasound on May 20, 2011 suggested surgical excision for fibroadenoma. ??Biopsy results are not available for review, but the patient remembers surgical excision performed. STUDIES: 1. Bilateral diagnostic mammography with tomosynthesis and CAD 2. ??Targeted ultrasound of the right breast 3. ??Targeted ultrasound of the left breast TECHNIQUE: Bilateral digital diagnostic mammography is obtained and read in conjunction with computer-aided detection. ??Tomosynthesis as well as 2-D C view imaging were obtained. COMPARISON: No prior mammograms available for comparison. ??This is a baseline mammogram. RIGHT BREAST: ??Previous excisional biopsy. ??Suggestion of focal asymmetry in the upper-outer quadrant. ??No suspicious calcifications or other abnormalities are seen. Targeted ultrasound of the right breast was performed throughout the upper-outer quadrant. ??No suspicious sonographic findings seen during the survey. ??Only normal breast tissue seen. LEFT BREAST: ??Subadjacent to the triangular skin marker, there is an 2.0 cm mass in the upper-outer quadrant at approximately 4 cm from the nipple (MLO 22/60, CC 32/60). ??Additional approximately 1.1 cm mass seen in the upper-outer quadrant at about 5 cm from the nipple. ??No suspicious calcifications or other abnormalities are seen. Targeted ultrasound of the left breast was performed at the location of the palpable concern and mammographic findings. ??The findings are as follows: -2.0 x 1.7 x 1.2 cm hypoechoic solid mass at 2 o'clock position 4 cm from the nipple. ??Minimal internal vascularity demonstrated with color Doppler evaluation. -1.0 x 0.8 x 0.4 cm hypoechoic solid mass at 2 o'clock position 4 cm from the nipple. ??No internal vascularity demonstrated with color Doppler evaluation. ??This is located approximately 0.7 cm from the palpable mass. Procedure Note Rishi Archer MD - 05/03/2024 HISTORY: Left breast mass in the upper-outer quadrant. Office visit onApril 27, 2024 describes left breast mass at 2 o'clock position. Reportin Epic of right breast ultrasound on May 20, 2011 suggested surgicalexcision for fibroadenoma. Biopsy results are not available for review,but the patient remembers surgical excision performed. STUDIES: 1. Bilateral diagnostic mammography with tomosynthesis and CAD 2. Targeted ultrasound of the right breast 3. Targeted ultrasound of the left breast TECHNIQUE: Bilateral digital diagnostic mammography is obtained and readin conjunction with computer-aided detection. Tomosynthesis as well as2-D C view imaging were obtained. COMPARISON: No prior mammograms available for comparison. This is abaseline mammogram. RIGHT BREAST: Previous excisional biopsy. Suggestion of focal asymmetryin the upper-outer quadrant. No suspicious calcifications or otherabnormalities are seen. Targeted ultrasound of the right breast was performed throughout theupper-outer quadrant. No suspicious sonographic findings seen during thesurvey. Only normal breast tissue seen. LEFT BREAST: Subadjacent to the triangular skin marker, there is an 2.0cm mass in the upper-outer quadrant at approximately 4 cm from the nipple(MLO 22/60, CC 32/60). Additional approximately 1.1 cm mass seen in theupper-outer quadrant at about 5 cm from the nipple. No suspiciouscalcifications or other abnormalities are seen. Targeted ultrasound of the left breast was performed at the location ofthe palpable concern and mammographic findings. The findings are asfollows: -2.0 x 1.7 x 1.2 cm hypoechoic solid mass at 2 o'clock position 4 cm fromthe nipple. Minimal internal vascularity demonstrated with color Dopplerevaluation. -1.0 x 0.8 x 0.4 cm hypoechoic solid mass at 2 o'clock position 4 cm fromthe nipple. No internal vascularity demonstrated with color Dopplerevaluation. This is located approximately 0.7 cm from the palpablemass. IMPRESSION: RIGHT BREAST: Negative, no evidence of malignancy. LEFT BREAST: 1. Palpable concern correlates with 2.0 cm hypoechoic solid mass at 2o'clock position at 4 cm from the nipple. Suspicious findings. Anultrasound-guided needle core biopsy is recommended. 2. Additional 1.0 cm solid mass at 2 o'clock position at 4 cm from thenipple. Probably benign. A 6-month follow-up ultrasound is recommended.However, depending on the pathology results of the above biopsy,management may change. Findings and recommendations were discussed with the patient. BREAST DENSITY: D - The breasts are extremely dense which lowers thesensitivity of mammography. BI-RADS CATEGORY: 4 - SUSPICIOUS RECOMMENDATION: Mammography: Core biopsy of left breast recommended. Clinical managementof right breast is recommended. Ultrasound: Core biopsy of left breast recommended. Mammo Location: [facility], [address] [place] [address], [id number], . -------- FINAL REPORT -------- Dictated By: Rishi Archer Dictated Date: 05/03/2024 10:46 ET Assigned Physician: Rishi Archer Reviewed and Electronically Signed By: Rishi Archer Signed Date: 05/03/2024 11:34 ET Workstation ID: [id number] Transcribed By: Self Edit Transcribed Date: 05/03/2024 11:15 ET us Joselyn MCCRAY IMG US PROCEDURES Final Resu lt * (ABNORMAL) MG Mammo Digital Diagnostic w Johnson bilat (05/03/2024 10:34 AM EST) Anatomical Region Laterality Modality Breast Bilateral Mammography 05/03/2024 10:4 6 AM EST Impressions 05/03/2024 11:34 AM EST RIGHT BREAST: Negative, no evidence of malignancy. LEFT BREAST: 1. ??Palpable concern correlates with 2.0 cm hypoechoic solid mass at 2 o'clock position at 4 cm from the nipple. ??Suspicious findings. ??An ultrasound-guided needle core biopsy is recommended. 2. ??Additional 1.0 cm solid mass at 2 o'clock position at 4 cm from the nipple. ??Probably benign. ??A 6-month follow-up ultrasound is recommended. ??However, depending on the pathology results of the above biopsy, management may change. Findings and recommendations were discussed with the patient. ?? BREAST DENSITY: D - The breasts are extremely dense which lowers the sensitivity of mammography. ?? BI-RADS CATEGORY: 4 - SUSPICIOUS RECOMMENDATION: Mammography: Core biopsy of ??left breast recommended. Clinical management of right breast is recommended. Ultrasound: Core biopsy of ??left breast recommended. Mammo Location: [facility], [address] [place] [address], [id number], . -------- FINAL REPORT -------- Dictated By: Rishi Archer Dictated Date: 05/03/2024 10:46 ET Assigned Physician: Rishi Archer Reviewed and Electronically Signed By: Rishi Archer Signed Date: 05/03/2024 11:34 ET Workstation ID: [id number] Transcribed By: Self Edit Transcribed Date: 05/03/2024 11:15 ET Narrative 05/03/2024 11:34 AM EST HISTORY: Left breast mass in the upper-outer quadrant. ??Office visit on April 27, 2024 describes left breast mass at 2 o'clock position. ??Report in Epic of right breast ultrasound on May 20, 2011 suggested surgical excision for fibroadenoma. ??Biopsy results are not available for review, but the patient remembers surgical excision performed. STUDIES: 1. Bilateral diagnostic mammography with tomosynthesis and CAD 2. ??Targeted ultrasound of the right breast 3. ??Targeted ultrasound of the left breast TECHNIQUE: Bilateral digital diagnostic mammography is obtained and read in conjunction with computer-aided detection. ??Tomosynthesis as well as 2-D C view imaging were obtained. COMPARISON: No prior mammograms available for comparison. ??This is a baseline mammogram. RIGHT BREAST: ??Previous excisional biopsy. ??Suggestion of focal asymmetry in the upper-outer quadrant. ??No suspicious calcifications or other abnormalities are seen. Targeted ultrasound of the right breast was performed throughout the upper-outer quadrant. ??No suspicious sonographic findings seen during the survey. ??Only normal breast tissue seen. LEFT BREAST: ??Subadjacent to the triangular skin marker, there is an 2.0 cm mass in the upper-outer quadrant at approximately 4 cm from the nipple (MLO 22/60, CC 32/60). ??Additional approximately 1.1 cm mass seen in the upper-outer quadrant at about 5 cm from the nipple. ??No suspicious calcifications or other abnormalities are seen. Targeted ultrasound of the left breast was performed at the location of the palpable concern and mammographic findings. ??The findings are as follows: -2.0 x 1.7 x 1.2 cm hypoechoic solid mass at 2 o'clock position 4 cm from the nipple. ??Minimal internal vascularity demonstrated with color Doppler evaluation. -1.0 x 0.8 x 0.4 cm hypoechoic solid mass at 2 o'clock position 4 cm from the nipple. ??No internal vascularity demonstrated with color Doppler evaluation. ??This is located approximately 0.7 cm from the palpable mass. Procedure Note Rishi Archer MD - 05/03/2024 HISTORY: Left breast mass in the upper-outer quadrant. Office visit onApril 27, 2024 describes left breast mass at 2 o'clock position. Reportin Epic of right breast ultrasound on May 20, 2011 suggested surgicalexcision for fibroadenoma. Biopsy results are not available for review,but the patient remembers surgical excision performed. STUDIES: 1. Bilateral diagnostic mammography with tomosynthesis and CAD 2. Targeted ultrasound of the right breast 3. Targeted ultrasound of the left breast TECHNIQUE: Bilateral digital diagnostic mammography is obtained and readin conjunction with computer-aided detection. Tomosynthesis as well as2-D C view imaging were obtained. COMPARISON: No prior mammograms available for comparison. This is abaseline mammogram. RIGHT BREAST: Previous excisional biopsy. Suggestion of focal asymmetryin the upper-outer quadrant. No suspicious calcifications or otherabnormalities are seen. Targeted ultrasound of the right breast was performed throughout theupper-outer quadrant. No suspicious sonographic findings seen during thesurvey. Only normal breast tissue seen. LEFT BREAST: Subadjacent to the triangular skin marker, there is an 2.0cm mass in the upper-outer quadrant at approximately 4 cm from the nipple(MLO 22/60, CC 32/60). Additional approximately 1.1 cm mass seen in theupper-outer quadrant at about 5 cm from the nipple. No suspiciouscalcifications or other abnormalities are seen. Targeted ultrasound of the left breast was performed at the location ofthe palpable concern and mammographic findings. The findings are asfollows: -2.0 x 1.7 x 1.2 cm hypoechoic solid mass at 2 o'clock position 4 cm fromthe nipple. Minimal internal vascularity demonstrated with color Dopplerevaluation. -1.0 x 0.8 x 0.4 cm hypoechoic solid mass at 2 o'clock position 4 cm fromthe nipple. No internal vascularity demonstrated with color Dopplerevaluation. This is located approximately 0.7 cm from the palpablemass. IMPRESSION: RIGHT BREAST: Negative, no evidence of malignancy. LEFT BREAST: 1. Palpable concern correlates with 2.0 cm hypoechoic solid mass at 2o'clock position at 4 cm from the nipple. Suspicious findings. Anultrasound-guided needle core biopsy is recommended. 2. Additional 1.0 cm solid mass at 2 o'clock position at 4 cm from thenipple. Probably benign. A 6-month follow-up ultrasound is recommended.However, depending on the pathology results of the above biopsy,management may change. Findings and recommendations were discussed with the patient. BREAST DENSITY: D - The breasts are extremely dense which lowers thesensitivity of mammography. BI-RADS CATEGORY: 4 - SUSPICIOUS RECOMMENDATION: Mammography: Core biopsy of left breast recommended. Clinical managementof right breast is recommended. Ultrasound: Core biopsy of left breast recommended. Mammo Location: [facility], [address], [place], [address], . -------- FINAL REPORT -------- Dictated By: Rishi Archer Dictated Date: 05/03/2024 10:46 ET Assigned Physician: Rishi Archer Reviewed and Electronically Signed By: Rishi Archer Signed Date: 05/03/2024 11:34 ET Workstation ID: [id number] Transcribed By: Self Edit Transcribed Date: 05/03/2024 11:15 ET us Joselyn MCCRAY IMG BI PROCEDURES Final Resu lt * Hepatitis C antibody (04/27/2024 11:41 AM EST) [facility] Hepatitis C Antibody Negative Negative LAB CHEMISTRY METHOD 04/27/2024 4:05 PM EST [facility] Blood Venous blood specimen / Unknown Venipuncture / Unknown 04/27/2024 11:41 AM EST 04/27/2024 11:41 AM EST Joselyn MCCRAY LAB BLOOD ORDERABLES Final R esult [facility] [address] [place] [address], * HIV 1,2 antibody, p24 antigen with reflex to differentiation (04/27/2024 11:41 AM EST) [facility] HIV Combo AB/AG Negative Negative LAB CHEMISTRY METHOD 04/27/2024 4:06 PM EST [facility] Blood Venous blood specimen / Unknown Venipuncture / Unknown 04/27/2024 11:41 AM EST 04/27/2024 11:41 AM EST Narrative [facility] - 04/27/2024 4:06 PM EST This assay is a 4th generation assay allowing for earlier detection of HIV infection by detecting the presence of the HIV-1 p24 antigen as well as the traditional antibodies to HIV type 1 (including group O) and type 2. ??Use of a 4th generation assay is the current CDC recommendation for HIV screening. us Joselyn MCCRAY LAB BLOOD ORDERABLES Final R esult [facility] [address] [place] [address], [place] [phone] * Lipid panel with reflex to direct LDL (03/29/2024 9:17 AM EST) [facility] Cholesterol 165 0 - 200 mg/dL LAB CHEMISTRY METHOD 03/29/2024 12:57 PM EST [facility] Triglycerides 55 0 - 150 mg/dL LAB CHEMISTRY METHOD 03/29/2024 12:57 PM EST [facility] HDL 55 >=40 mg/dL LAB CHEMISTRY METHOD 03/29/2024 12:57 PM EST [facility] LDL Calculated 99 0 - 100 mg/dL LAB CHEMISTRY METHOD 03/29/2024 12:57 PM EST [facility] VLDL Cholesterol Jelena 11 mg/dL LAB CHEMISTRY METHOD 03/29/2024 12:57 PM EST [facility] Non HDL Chol. (LDL+VLDL) 110 <145 mg/dL LAB CHEMISTRY METHOD 03/29/2024 12:57 PM [facility] Chol/HDL Ratio 3.0 0.0 - 4.4 LAB CHEMISTRY METHOD 03/29/2024 12:57 PM [facility] Blood Venous blood specimen / Unknown Venipuncture / Unknown 03/29/2024 9:17 AM EST 03/29/2024 9:17 AM EST Sheng May MD LAB BLOOD ORDERABLES Final Result Performing Organization Address [facility]/ZIP Co de Phone Number [facility] [address] [place] [address], [place] [phone] * Hm Depression Screening (12/21/2023) Depression Screening abstracted us Historical Provider HEALTH MAINTENANCE Final Result * Cervical Cancer Screening: HPV (06/11/2022) Pathologist [facility] Cervical Cancer Screening: HPV negative, abstracted Historical Provider HEALTH MAINTENANCE Final Result from Last 3 Months or Most Recently Relevant to Health Maintenance [place] [address] [place] [address] [employer] 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
== END 2024-07-31 13:39 | disposition home or self-care (01) ==
LOC: HO.MRI 13:38
PROVIDERS: PCP Internal Medicine; Visit Provider Nurse Practitioner Family
DX: G44.85 Primary stabbing headache (principal); Q04.9 Congenital malformation of brain, unspecified
CPT/HCPCS: 70546; A9585

== ENCOUNTER → 2024-07-31 13:38 | Outpatient (BNV) | payer OTHER, SELFPAY | PROVIDERS: PCP Internal Medicine; Visit Provider Radiology Diagnostic Radiology | DX: R51.9 Headache, unspecified (principal) | CPT/HCPCS: 70546 ==

== ENCOUNTER 2024-08-14 14:12 | Outpatient (AMB) | payer OTHER, SELFPAY ==
[2024-08-14 14:22] VITALS: BP 100/70; PULSE 68; O2SAT 98; BMI 23.8
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
--- OUTSIDE RECORDS SUMMARY | 2024-08-14 17:00 | XMS_ITS | Encounter Summary ---
Author Organization [employer] [facility] Address [address] [place] [address] Care Team Providers Care Film Painter Name Role Phone Bennett Pardo MD Primary Care Provider Sheng Mendoza Primary Care Provider [phone] Encounter Details Date Type Department Care Team Description 01/18/2013 Academic Assistant Report Medical Records [address] [place] [address] Marc Lee, PAVickyC Social History Tobacco Use Types Packs/Day Years Used Date Smoking Tobacco: Former Cigarettes 0.2 2 Q uit: 11/26/2012 Smokeless Tobacco: Never Alcohol Use Standard Drinks/Week Comments No 0 (1 standard drink = 0.6 oz pur e alcohol) Sex Assigned at Date Recorded Not on file Job Start Date Occupation Industry Not on file Not on file Not on file documented as of this encounter Plan of Treatment Not on file documented as of this encounter Visit Diagnoses Not on filedocumented in this encounter Care Teams Film Painter Relationship Specialty Start Date End Date Bennett Pardo MD PCP - General Internal Medicine 05/12/11 09/30/21 Sheng May [address] [place] [id number] PCP - General Internal Medicine 10/01/21 documented as of this encounter
--- OUTSIDE RECORDS SUMMARY | 2024-08-14 17:00 | XMS_ITS | Encounter Summary ---
Author Organization [employer] [facility] Address [address] [place] [address] Care Team Providers Care Systems Support Specialist Name Role Phone Sheng May Primary Care Provider [phone] Encounter Details Date Type Department Care Team Description 11/26/2022 Orders Only Medical Records [address] [place] [address] Abstract, Provider Social History Tobacco Use Types Packs/Day Years Used Date Smoking Tobacco: Some Days Cigarettes 1 2 Last attempted to quit: 11/26/2012 Smokeless Tobacco: Never Alcohol Use Standard Drinks/Week Comments Not Currently 0 (1 standard drink = 0.6 oz pur e alcohol) Sex Assigned at Date Recorded Not on file Job Start Date Occupation Industry Not on file Not on file Not on file COVID-19 Exposure Response Date Recorded In the last 10 days, have yo u been in contact with someone who was confirmed or suspected to have Coronavirus/COVID-19? No / Unsure 11/26/2022 10:58 AM EDT documented as of this encounter Plan of Treatment Not on file documented as of this encounter Procedures Procedure Name Priority Date/Time Associated Diagnosis Comments OUTSIDE PLAIN FILM Routine 11/25/2022 documented in this encounter Results * OUTSIDE PLAIN FILM (11/25/2022) Provider Abstract RADIOLOGY documented in this encounter Visit Diagnoses Not on filedocumented in this encounter Care Teams Systems Support Specialist Relationship Specialty Start Date End Date Sheng May [address] [place] [address] PCP - General Internal Medicine 10/01/21 documented as of this encounter
--- OUTSIDE RECORDS SUMMARY | 2024-08-14 17:00 | XMS_ITS | Encounter Summary ---
Author Organization [place] [address] Care Team Providers Care Setter Off Name Role Phone Sheng May MD Primary Care Provider [phone] Reason for Visit * Reason Onset Date Comments Labs Only 07/27/2024 Encounter Details Date Type Department Care Team (Late st Contact Info) Description 07/27/2024 Telephone Adult Medicine [address] [phone] Sheng May MD [address] [place] [phone] Labs Only Social History Tobacco Use Types Packs/Day Years Used Date Smoking Tobacco: Former Cigarettes Q uit: 11/26/2012 Smokeless Tobacco: Never Alcohol Use Standard Drinks/Week Comments Yes 0 (1 standard drink = 0.6 oz pur e alcohol) Comments No Sex and Gender Information Value Date Recorded Sex Assigned at Female 08/06/2024 6:38 PM EDT Legal Sex Female 5:31 AM EST Gender Identity Female 08/06/2024 6:38 PM EDT Sexual Orientation Straight 08/06/2024 6: 38 PM EDT documented as of this encounter Progress Notes * Abdullahi Slade MA - 08/01/2024 10:35 AM EDT Pt has been informed * Sheng May MD - 07/27/2024 5:38 [...] 10/31/2024 10:55 AM EDT Appointment Radiology Department - [address] [phone] 11/13/2024 2:00 PM EDT Office Visit Adult Medicine [address] [phone] Melinda Baron PA [address] [place] [address] Scheduled Orders Name Type Priority Associated Diagnoses Orde r Schedule Interferon gamma for TB, qualitative Lab Routine Encounter for pre-employment examination 1 Occurrences starting 07/27/2024 until 07/27/2025 documented as of this encounter Visit Diagnoses Diagnosis Encounter for pre-employment examination- Primary documented in this encounter Care Teams Setter Off Relationship Specialty Start Date End Date Sheng May MD [address] [place] [address] PCP - General Internal Medicine 10/01/21 documented as of this encounter
--- OUTSIDE RECORDS SUMMARY | 2024-08-14 17:00 | XMS_ITS | Encounter Summary ---
Author Organization [employer] [facility] Address [address] [place] [address] Care Team Providers Care Rfid Manager Name Role Phone Bennett Pardo MD Primary Care Provider Sheng Mendoza Primary Care Provider [phone] Encounter Details Date Type Department Care Team Description 10/28/2013 Transfer Records Medical Records [address] [place] [address] Abstract, Provider Social History Tobacco Use Types [...] on filedocumented in this encounter Care Teams Rfid Manager Relationship Specialty Start Date End Date Bennett Pardo MD PCP - General Internal Medicine 05/12/11 09/30/21 Sheng May [address] [place] [phone] PCP - General Internal Medicine 10/01/21 documented as of this encounter
--- OUTSIDE RECORDS SUMMARY | 2024-08-14 17:00 | XMS_ITS | Encounter Summary ---
Author Organization [employer] [facility] Address [address] [place] [address] Care Team Providers Care Aerial Gunner Name Role Phone Bennett Pardo MD Primary Care Provider Sheng Mendoza Primary Care Provider Encounter Details Date Type Department Care Team Description 07/28/2019 Telephone OBGYN - [employer] [address] [place], [place] [phone] Raymundo Evangelista MD [address] [place], [place] [phone] Social History Tobacco Use Types Packs/Day Years Used Date Smoking Tobacco: Former Cigarettes 1 2 Q uit: 11/26/2012 Smokeless Tobacco: Never [...] on filedocumented in this encounter Care Teams Aerial Gunner Relationship Specialty Start Date End Date Bennett Pardo MD PCP - General Internal Medicine 05/12/11 09/30/21 Sheng May [address] [place] [phone] PCP - General Internal Medicine 10/01/21 documented as of this encounter
--- OUTSIDE RECORDS SUMMARY | 2024-08-14 17:00 | XMS_ITS | Clinical Summary ---
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 4 Active omeprazole-amoxici ll-rifabutin (Talicia) 10-250-12.5 mg capsule,IR - delay rel,biphase Take 4 capsules by mouth every 8 (eight) hours. 4 Active aspirin-acetaminop hen-caffeine (EXCEDRIN MIGRAINE) 250-250-65 mg per tablet Take 1 Tablet by mouth every 6 hours as needed (mild to moderate headaches). 4 Active docusate sodium (COLACE) 100 mg capsule Take 1 Capsule by mouth 2 times daily as needed for Constipation . 4 Active SUMAtriptan (IMITREX) 50 mg tablet Take 1 tablet for severe headache, may repeat dose once after 2 hours, if needed. 4 Active albuterol HFA (PROAIR HFA ; PROVENTIL HFA ; VENTOLIN HFA) 90 mcg/actuation inhalerIndications :Mild intermittent asthma without complication Inhale 2 puffs [...] day. 90 each 1 4 Active vit,jelena 73-vfxb-tdwsb 27 mg iron- 1 mg tablet Take 1 tablet by mouth 1 (one) time each day. 30 each 5 04/27/19 26 Active cephalexin (KEFLEX) 500 mg capsule Take 1 capsule (500 mg total) by mouth 3 (three) times a day for 7 days. 21 each 5 08/14/19 25 ondansetron ODT (ZOFRAN-ODT) 4 mg disintegrating tablet Let 1 tablet dissolve under the tongue three times daily as needed for nausea or vomiting. 10 tablet 5 08/14/19 25 Active Problems Problem Noted Date Diagnosed Date [...] Overview (01/18/2024): Pt undergoing Iron infusion at [facility] S/p Hem consult --PICA eating Ice and Talcum powder have resolved and labs improved ---cont to take IRON daily for at least 3 months pp, as per Heme recommendations 01/31/2015 Ferrous gluconate ordered Left ovarian cyst 07/04/2014 Calculus of kidney 01/13/2013 Anxiety 07/14/2011 Back pain 05/15/2011 Encounters Date Type Department Care Team Description 08/14/2024 10:45 AM EDT Office Visit Adult Medicine [address] [phone] Melinda Baron PA Seizure ([facility] V24, [facility] V28) (Primary Dx) 08/06/2024 5:41 PM EDT - 08/06/2024 10:47 PM EDT Emergency [facility] Emergency [address] [place] [address] Denver Gilbert MD Seizure ([facility] V24, [facility] V28) (Primary Dx); Lip laceration, initial encounter Discharge Disposition: Home or Self Care 07/27/2024 Telephone Adult [address] [phone] Sheng May MD Labs Only from Last 3 Months Immunizations Name Administration Dates Next Due Hepatitis B (Lncemwr-W-Euriy , Recombivax HB-Adult) 19yo and older 11/13/2020 [...] Date Site/Laterality Comments OTHER SURGICAL HISTORY PROCEDURE: LA PUNCTURE ASPIRATION CYST OF BREAST OTHER SURGICAL [...] Orientation Straight 08/06/2024 6: 38 PM EDT Obstetrics History Para Term AB IAB SAB Ectopic Multiple Livin g Live Births 10 2 2 0 6 5 1 0 0 2 2 Date Outcome GA Total Labor Labor/2nd/3rd Weight Sex Type Anes PTL Christy A1 A5 Name Clin 2009 Term 40w 0d 3175 g (112 oz) M Vag-Sp ont None Livin g Comments:Patsy 2010 SAB 16w 0d Comments:Patsylexis n 2011 IAB 6w0 d 2012 IAB 2014 Term 41w 0d 2h 37m/ 3487 g (123 oz) F Vag-Sp ont None Livin g 8 9 A Clements CN Delivery Location:[facility] IAB 2021 IAB 2022 IAB 6w0 d Surgic al Dung Last Filed Vital Signs Vital Sign Reading Time Taken Comments Blood Pressure 100/64 08/14/2024 10:52 AM EDT Pulse 70 08/14/2024 10:52 AM EDT Temperature 37.2 ??C (98.9 ??F) 08/14/2024 10:52 AM E DT Respiratory Rate 14 08/14/2024 10:52 AM EDT Oxygen Saturation 99% 08/06/2024 10:42 PM EDT Inhaled Oxygen Concentration - - Weight 59.4 kg (131 lb) 08/14/2024 10:52 AM EDT Height 154.9 cm (5' 1 ) 08/14/2024 10:52 AM EDT Body Mass Index 24.75 08/14/2024 10:52 AM EDT Plan of Treatment Upcoming Encounters Date Type Department Care Team (Late st Contact Info) Description 10/31/2024 10:55 AM EDT Appointment Radiology Department - [address] [phone] 11/13/2024 2:00 PM EDT Office Visit Adult Medicine [address] [phone] Melinda Baron PA [address] [place] [address] Health Maintenance Due Date Last Done Comments Pneumococcal Vaccine: Pediatrics (0 to 5 Years) and At-Risk Patients (6 to 64 Years) (1 of 2 - PCV) 07/12/2010 Hepatitis B Vaccines (2 of 3 - 19+ 3-dose series) 12/11/2020 11/13/2020 COVID-19 Vaccine (4 - season) 2023 05/20/2021, 09/27/2020, 09/07/2020 Social Influencers [...] Procedure Name Priority Date/Time Associated Diagnosis Comments ED LACERATION REPAIR Routine 08/06/2024 9:[address] CERVICAL SPINE WO CONTRAST STAT 08/06/2024 8:[address] MAXILLOFACIAL WO CONTRAST STAT 08/06/2024 8:[address] HEAD WO CONTRAST STAT 08/06/2024 8 :41 PM EDT ECG 12-LEAD STAT 08/06/2024 8:00 PM EDT TROPONIN I HIGH SENSITIVITY STAT 08/06/2024 7:53 PM EDT POCT GLUCOSE BLOOD Routine 08/06/2024 7: 14 PM EDT POC , URINE DIAGNOSTIC STAT 08/06/2024 6:15 PM EDT CREATINE KINASE STAT Add-on 08/06/2024 6:09 PM EDT DONNELLY URINE CULTURE TUBE STAT 08/06/2024 6:09 PM EDT URINALYSIS WITH REFLEX MICROSCOPIC AND CULTURE STAT 08/06/2024 6:09 PM EDT CBC WITH AUTO DIFFERENTIAL STAT 08/06/2024 6:09 PM EDT URINALYSIS WITH REFLEX MICROSCOPIC AND CULTURE STAT 08/06/2024 6:09 PM EDT PROLACTIN STAT 08/06/2024 6:09 PM EDT MAGNESIUM STAT 08/06/2024 6:09 PM EDT BASIC METABOLIC PANEL STAT 08/06/2024 6:09 PM EDT CBC AND DIFFERENTIAL STAT 08/06/2024 6:09 PM EDT CULTURE URINE STAT 08/06/2024 6:09 PM EDT EXTERNAL MRI REPORT 07/31/2024 EXTERNAL MRI REPORT 07/31/2024 EXTERNAL MRI REPORT 06/25/2024 EXTERNAL MRI REPORT 06/25/2024 HEPATITIS C ANTIBODY Routine 04/27/2024 11:41 AM [...] Recently Relevant to Health Maintenance Results * Laceration Repair (08/06/2024 9:38 PM EDT) Narrative Denver Gilbert MD - 08/06/2024 9:38 PM EDT SHAZIA Lind ? 08/06/2024 10:28 PM Laceration Repair Date/Time: 08/06/2024 9:38 PM Performed by: SHAZIA Lind Authorized by: Denver Gilbert MD ?? Consent: ??Consent obtained: ??Verbal ??Risks discussed: ??Infection, pain, retained foreign body, need for additional repair, poor cosmetic result, poor wound healing and vascular damage ??Alternatives discussed: ??Delayed treatment [place] protocol: ??Patient identity confirmed: ??Verbally with patient and hospital-assigned identification number Anesthesia: ??Anesthesia method: ??Local infiltration ??Local anesthetic: ??Lidocaine 1% w/o epi Laceration details: ??Location: ??Lip ??Lip location: ??Upper lip, full thickness ??Vermilion border involved: no ?Length (cm): ??2.5 Pre-procedure details: ??Preparation: ??Patient was prepped and draped in usual sterile fashion and imaging obtained to evaluate for foreign bodies Exploration: ??Imaging outcome: foreign body noted ?Wound exploration: wound explored through full range of motion and entire depth of wound visualized ?Contaminated: no ?? Treatment: ??Area cleansed with: ??Povidone-iodine and saline ??Amount of cleaning: ??Extensive ??Irrigation solution: ??Sterile water ??Irrigation volume: ??100 cc ??Irrigation method: ??Syringe ??Visualized foreign bodies/material removed: yes ?Debridement: ??None Skin repair: ??Repair method: ??Sutures ??Suture size: ??6-0 ??Suture material: ??Prolene ??Suture technique: ??Simple interrupted ??Number of sutures: ??4 Approximation: ??Approximation: ??Loose ??Vermilion border well-aligned: yes ?? Repair type: ??Repair type: ??Simple Post-procedure details: ??Dressing: ??Open (no dressing) Comments: ?? Multiple small fragments flushed out of lip wound, patient tolerated well. ??All sharps accounted for. ??No immediate complication. us Denver Gilbert MD IN CLINIC/BEDSIDE ORDERAB LES Final Result * CT Cervical Spine wo Contrast (08/06/2024 8:41 PM EDT) Anatomical Region Laterality Modality Spine, C-spine Computed Tomogra phy 08/06/2024 8:56 PM EDT Impressions 08/06/2024 8:56 PM EDT Impression: No acute processes This document has been electronically signed by: Jeramy Glynn MD on 08/06/2024 20:56:46 Narrative 08/06/2024 8:56 PM EDT INDICATION: seizure fall head injury CT cervical spine without contrast Comparison: None Findings: No acute fracture or dislocation. Posterior alignment is normal. No significant degenerative change. No radiopaque foreign bodies. Procedure Note Jeramy Glynn MD - 08/06/2024 INDICATION: seizure fall head injury CT cervical spine without contrast Comparison: None Findings: No acute fracture or dislocation. Posterior alignment is normal. No significant degenerative change. No radiopaque foreign bodies. IMPRESSION: Impression: No acute processes This document has been electronically signed by: Jeramy Glynn MD on 08/06/2024 20:56:[address] PROCEDURES Final Result * CT Maxillofacial wo Contrast (08/06/2024 8:41 PM EDT) Anatomical Region Laterality Modality Head and Neck Computed Tomogra phy 08/06/2024 9:07 PM EDT Impressions 08/06/2024 9:07 PM EDT Impression: Probable right soft tissue foreign bodies anterior to maxilla No acute bony abnormality. This document has been electronically signed by: Jeramy Glynn MD on 08/06/2024 21:07:10 Narrative 08/06/2024 9:07 PM EDT INDICATION: fall seizure head injury CT maxillofacial without contrast Comparison: None Findings: No acute fracture or dislocation identified. Presumed chronic nasal septal deviation. Paranasal sinuses and mastoid air cells clear. Mandible and TMJs are unremarkable. Right maxillary subcutaneous edema and/or contusion. Small calcific densities anterior to right maxilla. Question soft tissue foreign bodies. Ocular globes symmetric and unremarkable. Procedure Note Jeramy Glynn MD - 08/06/2024 INDICATION: fall seizure head injury CT maxillofacial without contrast Comparison: None Findings: No acute fracture or dislocation identified. Presumed chronic nasal septal deviation. Paranasal sinuses and mastoid air cells clear. Mandible and TMJs are unremarkable. Right maxillary subcutaneous edema and/or contusion. Small calcific densities anterior to right maxilla. Question soft tissue foreign bodies. Ocular globes symmetric and unremarkable. IMPRESSION: Impression: Probable right soft tissue foreign bodies anterior to maxilla No acute bony abnormality. This document has been electronically signed by: Jeramy Glynn MD on 08/06/2024 21:07:[address] PROCEDURES Final Result * CT Head wo Contrast (08/06/2024 8:41 PM EDT) Anatomical Region Laterality Modality Head and Neck Computed Tomogra phy 08/06/2024 8:55 PM EDT Impressions 08/06/2024 8:55 PM EDT Impression: No acute intracranial process This document has been electronically signed by: Jeramy Glynn MD on 08/06/2024 20:55:47 Narrative 08/06/2024 8:55 PM EDT INDICATION: seizure head injury CT head without contrast Comparison: None Findings: No acute intracranial fluid collection or hematoma. 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 No acute process in sinuses or mastoids. No acute bony abnormality. Procedure Note Jeramy Glynn MD - 08/06/2024 INDICATION: seizure head injury CT head without contrast Comparison: None Findings: No acute intracranial fluid collection or hematoma. 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 No acute process in sinuses or mastoids. No acute bony abnormality. IMPRESSION: Impression: No acute intracranial process This document has been electronically signed by: Jeramy Glynn MD on 08/06/2024 20:55:[address] PROCEDURES Final Result * ECG 12 lead (08/06/2024 8:00 PM EDT) Ventricular Rate ECG 74 BPM GEMUSE Atrial Rate 74 BPM GEMUSE P-R Interval 170 ms GEMUSE QRS Duration 76 ms GEMUSE Q-T Interval 376 ms GEMUSE QTc 417 ms GEMUSE P Wave Maynard 52 degrees GEMUSE R Maynard 73 degrees GEMUSE T Maynard 51 degrees GEMUSE ECG Interpretation Normal sinus rhythm Normal ECG No previous ECGs available Confirmed by Hemal FAJARDO JAMES ([id number]) on 08/07/2024 12:48:18 PM GEMUSE 08/06/2024 8:00 PM EDT 08/07/2024 12:48 PM EDT us Rebecca MCCRAY ECG ORDERABLES Final Result GEMUSE * Troponin I high sensitivity (08/06/2024 7:53 PM EDT) Pathologist [facility] High Sensitivity Troponin I 4 <=54 ng/L LAB CHEMISTRY METHOD 08/06/2024 8:40 PM EDT [facility] Blood Venous blood specimen / Unknown Venipuncture / Unknown 08/06/2024 7:53 PM EDT 08/06/2024 8:08 PM EDT Narrative [facility] - 08/06/2024 8:40 PM EDT High levels of biotin in samples may falsely decrease hsTroponin values. ??Use caution when interpreting hsTroponin results in patients taking biotin who exhibit renal impairment (eGFR <60) or in patients taking more than 20 mg/day of biotin. us Rebecca MCCRAY LAB BLOOD ORDERABLES Final Resu lt Performing Organization Address City/[facility]/ZIP Co de Phone Number [facility] [address] [place] [address], [place] [phone] * POCT Glucose, blood (08/06/2024 7:14 PM EDT) Glucose POCT 85 70 - 100 mg/dL 08/06/2024 7:14 PM EDT [facility] Blood Capillary blood specimen / Unknown 08/06/2024 7:14 PM EDT 08/06/2024 7:15 PM EDT Denver Gilbert MD LAB POINT OF CARE TEST DOCKED DEVICE UNSOLICITED RESULTS Final Result Performing Organization Address City/[facility]/ZIP Co de Phone Number [facility] [address] [place] [address], [place] [phone] * POC , urine manually resulted (08/06/2024 6:15 PM EDT) HCG, Ur POC Negative Negative POC hCG Int QC Pass? Yes Yes EXPIRATION DATE POC 01/30/2026 LOT NUMBER POC [id number] Urine Urine specimen obtained by clean catch procedure / Unknown 08/06/2024 6:15 PM EDT Denver Gilbert MD POINT OF CARE TEST ENTER/ EDIT ORDERABLES Final Result * (ABNORMAL) Urinalysis with reflex microscopic and culture (08/06/2024 6:09 PM EDT) Pathologist [facility] Specific [place] Urine 1.020 1.003 - 1.030 LAB URINALYSIS - AUTOMATED METHOD 08/06/2024 6:50 PM [facility] pH, Urine 6.5 5.0 - 8.0 pH LAB URINALYSIS - AUTOMATED METHOD 08/06/2024 6:50 PM [facility] Leukocytes, Urine Trace(A) Negative LAB URINALYSIS - AUTOMATED METHOD 08/06/2024 6:50 PM [facility] Nitrite, Urine Negative Negative LAB URINALYSIS - AUTOMATED METHOD 08/06/2024 6:50 PM [facility] Protein, Urine Trace <=Trace mg/dL LAB URINALYSIS - AUTOMATED METHOD 08/06/2024 6:50 PM [facility] Glucose, Urine Negative Negative mg/dL LAB URINALYSIS - AUTOMATED METHOD 08/06/2024 6:50 PM [facility] Ketones, Urine Negative Negative mg/dL LAB URINALYSIS - AUTOMATED METHOD 08/06/2024 6:50 PM [facility] Urobilinogen , Urine 1.0 0.2 - 1.0 mg/dL LAB URINALYSIS - AUTOMATED METHOD 08/06/2024 6:50 PM [facility] Bilirubin, Urine Negative Negative LAB URINALYSIS - AUTOMATED METHOD 08/06/2024 6:50 PM [facility] Blood, Urine Negative Negative LAB URINALYSIS - AUTOMATED METHOD 08/06/2024 6:50 PM [facility] RBC, Urine 2 0 - 4 /HPF 08/06/2024 6:50 PM [facility] WBC, Urine 10(H) 0 - 4 /HPF 08/06/2024 6:50 PM EDT [facility] Squamous Epithelial, Urine >100(H) 0 - 60 /LPF 08/06/2024 6:50 PM EDT [facility] Non-Squamous Epithelial, Urine Rare Transitional epithelial cells. /LPF 08/06/2024 6:50 PM EDT [facility] Bacteria, Urine Moderate(A) Negative /HPF 08/06/2024 6:50 PM EDT [facility] Hyaline Casts, Urine 3 0 - 3 /LPF 08/06/2024 6:50 PM EDT [facility] Other Casts, Urine Rare Fine Granular casts. /LPF 08/06/2024 6:50 PM EDT [facility] Urine Urine specimen obtained by clean catch procedure / Unknown Non-blood Collection / Unknown 08/06/2024 6:09 PM EDT 08/06/2024 6:23 PM EDT Denver Gilbert MD LAB URINE ORDERABLES Talya l Result [facility] [address] [place] [address], [place] [phone] * Donnelly urine culture tube (08/06/2024 6:09 PM EDT) Extra Tube Hold for add-ons. 08/06/2024 8:01 PM EDT [facility] Comment:Auto resulted. Urine Urine specimen obtained by clean catch procedure / Unknown Non-blood Collection / Unknown 08/06/2024 6:09 PM EDT 08/06/2024 6:23 PM EDT Denver Gilbert MD LAB URINE ORDERABLES Talya l Result [facility] [address] [place] [address], * (ABNORMAL) CBC auto differential (08/06/2024 6:09 PM EDT) [facility] Signature WBC 4.7(L) 4.8 - 10.8 K/mcL LAB HEMETOLOGY METHOD 08/06/2024 6:32 PM EDT [facility] RBC 3.70(L) 3.80 - 4.80 M/mcL LAB HEMETOLOGY METHOD 08/06/2024 6:32 PM EDT [facility] Hemoglobin 10.3(L) 11.5 - 16.0 g/dL LAB HEMETOLOGY METHOD 08/06/2024 6:32 PM EDT [facility] Hematocrit 32.9(L) 35.0 - 47.0 % LAB HEMETOLOGY METHOD 08/06/2024 6:32 PM EDT [facility] MCV 90.1 79.0 - 98.0 FL LAB HEMETOLOGY METHOD 08/06/2024 6:32 PM EDT [facility] MCH 28.2 27.0 - 32.0 pcg LAB HEMETOLOGY METHOD 08/06/2024 6:32 PM EDT [facility] MCHC 31.3(L) 32.0 - 37.0 g/dL LAB HEMETOLOGY METHOD 08/06/2024 6:32 PM EDT [facility] RDW 13.9 11.0 - 15.0 % LAB HEMETOLOGY METHOD 08/06/2024 6:32 PM EDT [facility] Platelets 216 130 - 400 K/mcL LAB HEMETOLOGY METHOD 08/06/2024 6:32 PM EDT [facility] MPV 9.8 7.0 - 11.0 FL LAB HEMETOLOGY METHOD 08/06/2024 6:32 PM EDT [facility] NRBC 0.0 <1.0 % LAB HEMETOLOGY METHOD 08/06/2024 6:32 PM EDT [facility] NRBC Absolute 0.00 <0.10 K/mcL LAB HEMETOLOGY METHOD 08/06/2024 6:[facility] Neutrophils Relative 47.7 % LAB HEMETOLOGY METHOD 08/06/2024 6:32 PM EDT [facility] Lymphocytes Relative 40.1 % LAB HEMETOLOGY METHOD 08/06/2024 6:32 PM EDT [facility] Monocytes Relative 8.4 % LAB HEMETOLOGY METHOD 08/06/2024 6:32 [facility] Eosinophils Relative 3.0 % LAB HEMETOLOGY METHOD 08/06/2024 6:32 PM [facility] Basophils Relative 0.4 % LAB HEMETOLOGY METHOD 08/06/2024 6:32 PM [facility] Immature Granulocytes Relative 0.4 % LAB HEMETOLOGY METHOD 08/06/2024 6:32 PM [facility] Neutrophils Absolute 2.26 1.50 - 7.00 K/mcL LAB HEMETOLOGY METHOD 08/06/2024 6:32 PM [facility] Lymphocytes Absolute 1.90 1.00 - 5.00 K/mcL LAB HEMETOLOGY METHOD 08/06/2024 6:32 PM EDT [facility] Monocytes Absolute 0.40 0.20 - 1.00 K/mcL LAB HEMETOLOGY METHOD 08/06/2024 6:32 PM [facility] Eosinophils Absolute 0.14 0.00 - 0.50 K/mcL LAB HEMETOLOGY METHOD 08/06/2024 6:32 PM [facility] Basophils Absolute 0.02 0.00 - 0.20 K/mcL LAB HEMETOLOGY METHOD 08/06/2024 6:32 PM EDT [facility] Immature Granulocytes Absolute 0.02 0.00 - 0.03 K/mcL LAB HEMETOLOGY METHOD 08/06/2024 6:32 PM EDT [facility] Blood Venous blood specimen / Unknown Venipuncture / Unknown 08/06/2024 6:09 PM EDT 08/06/2024 6:22 PM EDT Denver Gilbert MD LAB BLOOD ORDERABLES Talya l Result Performing Organization Address [facility] Co de Phone Number [facility] [address] [place] [address], * Prolactin (08/06/2024 6:09 PM EDT) Prolactin 156.40 See Comment ng/mL LAB CHEMISTRY METHOD 08/06/2024 6:50 PM EDT [facility] Comment: Prolactin Reference Ranges (ng/mL) ??Non ?2.2 - ??30.3 ? 8.1 - 347.6 ??Postmenopausal 0.7 - ??31.5 Blood Venous blood specimen / Unknown Venipuncture / Unknown 08/06/2024 6:09 PM EDT 08/06/2024 6:23 PM EDT Denver Gilbert MD LAB BLOOD ORDERABLES Talya l Result Performing Organization Address City/[facility]/ZIP Co de Phone Number [facility] [address] [place] [address], * Culture urine (08/06/2024 6:09 PM EDT) Culture, Urine 50,000-99,000 CFU/mL Mixed urogenital isabella, no uropathogens present. Suggest repeat specimen if clinically indicated. 08/07/2024 1:56 PM EDT [facility] Urine Urine specimen obtained by clean catch procedure / Unknown Non-blood Collection / Unknown 08/06/2024 6:09 PM EDT 08/06/2024 6:50 PM EDT Denver Gilbert MD LAB MICROBIOLOGY - GENERA L ORDERABLES Final Result Performing Organization Address [facility]/ZIP Co de Phone Number [facility] [address] [place] [address], [place] [phone] * Magnesium (08/06/2024 6:09 PM EDT) Magnesium 1.9 1.9 - 2.6 mg/dL LAB CHEMISTRY METHOD 08/06/2024 6:50 PM EDT [facility] Blood Venous blood specimen / Unknown Venipuncture / Unknown 08/06/2024 6:09 PM EDT 08/06/2024 6:23 PM EDT Denver Gilbert MD LAB BLOOD ORDERABLES Talya l Result Performing Organization Address [facility] de Phone Number [facility] [address] [place] [address], [place] [phone] * Cardiac Enzymes - CPK (08/06/2024 6:09 PM EDT) Total CK 132 22 - 269 unit/L LAB CHEMISTRY METHOD 08/06/2024 7:51 PM EDT [facility] Blood Venous blood specimen / Unknown Venipuncture / Unknown 08/06/2024 6:09 PM EDT 08/06/2024 6:23 PM EDT Rebecca MCCRAY LAB BLOOD ORDERABLES Final Resu lt Performing Organization Address [facility]/ZIP Co de Phone Number [facility] [address] [place] [address], [place] [phone] * Basic metabolic panel (08/06/2024 6:09 PM EDT) Sodium 140 133 - 145 mmol/L LAB CHEMISTRY METHOD 08/06/2024 6:50 PM [facility] Potassium 4.2 3.5 - 5.5 mmol/L LAB CHEMISTRY METHOD 08/06/2024 6:50 PM [facility] Chloride 108 96 - 110 mmol/L LAB CHEMISTRY METHOD 08/06/2024 6:50 PM [facility] CO2 28 21 - 32 mmol/L LAB CHEMISTRY METHOD 08/06/2024 6:50 PM [facility] Anion Gap 4 3 - 11 LAB CHEMISTRY METHOD 08/06/2024 6:50 PM [facility] Glucose 77 70 - 100 mg/dL LAB CHEMISTRY METHOD 08/06/2024 6:50 PM [facility] BUN 11 5 - 25 mg/dL LAB CHEMISTRY METHOD 08/06/2024 6:50 PM [facility] Creatinine 0.59 0.50 - 1.10 mg/dL LAB CHEMISTRY METHOD 08/06/2024 6:50 PM [facility] eGFR 122 >=60 mL/min/1. 73m2 LAB CHEMISTRY METHOD 08/06/2024 6:50 PM [facility] Comment:Calculation based on the??Chronic Kidney Disease Epidemiology Collaboration (CKD-EPI) equation refit??without adjustment for race. BUN/Creatinine Ratio 18.6 LAB CHEMISTRY METHOD 08/06/2024 6:50 PM [facility] Calcium 8.8 8.5 - 10.5 mg/dL LAB CHEMISTRY METHOD 08/06/2024 6:50 PM [facility] Blood Venous blood specimen / Unknown Venipuncture / Unknown 08/06/2024 6:09 PM EDT 08/06/2024 6:23 PM EDT us Denver Gilbert MD LAB BLOOD ORDERABLES Talya l Result Performing Organization Address City/[facility]/ZIP Co de Phone Number [facility] [address] [place] [address], * External MRI Report (07/31/2024) Only the most recent of4 resultswithin the time period is included. Anatomical Region Laterality Modality Magnetic Resonan ce Provider [facility] IMG MRI PROCEDURES Final Result * Hepatitis C antibody (04/27/2024 11:41 AM EST) Hepatitis C Antibody Negative Negative LAB CHEMISTRY METHOD 04/27/2024 4:05 PM [facility] Blood Venous blood specimen / Unknown Venipuncture / Unknown 04/27/2024 11:41 AM EST 04/27/2024 11:41 AM EST Joselyn MCCRAY LAB BLOOD ORDERABLES Final R esult Performing Organization Address City/[facility]/ZIP Co de Phone Number [facility] [address] [place] [address], * HIV 1,2 antibody, p24 antigen with reflex to differentiation (04/27/2024 11:41 AM EST) HIV Combo AB/AG Negative Negative LAB CHEMISTRY METHOD 04/27/2024 4:06 PM EST [facility] Blood Venous blood specimen / Unknown Venipuncture / Unknown 04/27/2024 11:41 AM EST 04/27/2024 11:41 AM EST Narrative [facility] - 04/27/2024 4:06 PM EST This assay is a 4th generation assay allowing for earlier detection of HIV infection by detecting the presence of the HIV-1 p24 antigen as well as the traditional antibodies to HIV type 1 (including group O) and type 2. ??Use of a 4th generation assay is the current CDC recommendation for HIV screening. Joselyn MCCRAY LAB BLOOD ORDERABLES Final R esult [facility] [address] [place] [address], [place] [phone] * Lipid panel with reflex to direct LDL (03/29/2024 9:17 AM EST) Cholesterol 165 0 - 200 mg/dL LAB CHEMISTRY METHOD 03/29/2024 12:57 PM EST [facility] Triglycerides 55 0 - 150 mg/dL LAB CHEMISTRY METHOD 03/29/2024 12:57 PM EST [facility] HDL 55 >=40 mg/dL LAB CHEMISTRY METHOD 03/29/2024 12:57 PM EST [facility] LDL Calculated 99 0 - 100 mg/dL LAB CHEMISTRY METHOD 03/29/2024 12:57 PM EST [facility] VLDL Cholesterol Jelena 11 mg/dL LAB CHEMISTRY METHOD 03/29/2024 12:57 PM EST [facility] Non HDL Chol. (LDL+VLDL) 110 <145 mg/dL LAB CHEMISTRY METHOD 03/29/2024 12:57 PM EST [facility] Chol/HDL Ratio 3.0 0.0 - 4.4 LAB CHEMISTRY METHOD 03/29/2024 12:57 PM [facility] Blood Venous blood specimen / Unknown Venipuncture / Unknown 03/29/2024 9:17 AM EST 03/29/2024 9:17 AM EST Sheng May MD LAB BLOOD ORDERABLES Final Result [facility] [address] [place] [address], [place] [phone] * Depression Screening (12/21/2023) Depression Screening abstracted Historical Provider HEALTH MAINTENANCE Final Result * Cervical Cancer Screening: HPV (06/11/2022) Cervical Cancer Screening: HPV negative, abstracted Historical Provider HEALTH MAINTENANCE Final Result from Last 3 Months or Most Recently Relevant to Health Maintenance [place] [address] [place] [address] [employer] Care Teams Weld Lay Out Worker Relationship Specialty Start Date End Date Sheng May MD [address] [place] [address] PCP - General Internal Medicine 10/01/21
--- OUTSIDE RECORDS SUMMARY | 2024-08-14 17:00 | XMS_ITS | Encounter Summary ---
Author Organization [facility] Address [address] [place] [address] Care Team Providers Care Lpta Name Role Phone Sheng May Primary Care Provider [phone] Encounter Details Date Type Department Care Team Description 11/26/2022 Telephone Gastroenterology - [place] [address] [facility] [address] [place] [address] Kyle Manuel PA-C [address] [facility] [address] [place] [address] Social History Tobacco Use Types Packs/Day Years [...] Recorded In the last 10 days, have fabiola padilla been in contact with someone who was confirmed or suspected to have Coronavirus/COVID-19? No / Unsure 11/26/2022 10:58 AM EDT documented as of this encounter Miscellaneous Notes * Telephone Encounter - Kyle Manuel PA-C - 11/26/2022 4:48 PM EDT Please tell patient that she continues to have bacteria in her stomach and we have tried a number of medications to help try to get rid of the bacteria which is not helpful. We will now refer her to infectious disease. Please let me know if she is okay with that referral. documented in this encounter Plan of Treatment Not on file documented as of this encounter Visit Diagnoses Not on filedocumented in this encounter Care Teams Lpta Relationship Specialty Start Date End Date Sheng May [address] [place] [address] PCP - General Internal Medicine 10/01/21 documented as of this encounter
--- OUTSIDE RECORDS SUMMARY | 2024-08-14 17:00 | XMS_ITS | Encounter Summary ---
[facility] [address] [place] [address] Care Team Providers Care Temporary Office Assistant Name Role Phone Sheng May Primary Care Provider [phone] Reason for Visit * Reason Onset Date Comments Information Needed 12/24/2021 Encounter Details Date Type Department Care Team Description 12/24/2021 Telephone Gastroenterology - [place] [address] [facility] [address] [place] [phone] Kyle Manuel PA-C 175 [facility] [address] [place] [address] Information Needed Social History Tobacco Use Types Packs/Day Years [...] suspected to have Coronavirus/COVID-19? No / Unsure 12/23/2021 1:26 PM EDT documented as of this encounter Miscellaneous Notes * Telephone Encounter - Corinne Recinos - 12/29/2021 10:46 AM EDT Order was faxed. * Telephone Encounter - Kamilah Hampton - 12/24/2021 2:21 PM EDT The patietnt has appointment on Wednesday for a Upper GI. They are asking for theorder to be faxed to [phone]. documented in this encounter Plan of Treatment Not on file documented as of this encounter Visit Diagnoses Not on filedocumented in this encounter Care Teams Temporary Office Assistant Relationship Specialty Start Date End Date Sheng May [address] [place] [address] PCP - General Internal Medicine 10/01/21 documented as of this encounter
--- OUTSIDE RECORDS SUMMARY | 2024-08-14 17:00 | XMS_ITS | Encounter Summary ---
[facility] [address] [place] [address] Care Team Providers Care Composition Floor Layer Name Role Phone Sheng May Primary Care Provider [phone] Encounter Details Date Type Department Care Team Description 12/24/2021 Telephone Gastroenterology - [place] [address] [facility] [address] [place] [phone] Kyle Manuel PA-C 175 [facility] [address] [place] [address] Social History Tobacco Use Types Packs/Day Years [...] Corinne Recinos - 12/29/2021 10:46 AM EDT Left a vm for the patient to call our office back. * Telephone Encounter - Kyle Manuel PA-C - 12/24/2021 2:25 PM EDT Please contact patient and let her know that she still is having bacteria in her stomach. We will suggest amoxicillin as well as Biaxin and she should continue on with the protonix twice daily. 2 weeks after she takes the antibiotics, she should stop the PPI as well and perform the breath test 2 weeks after stopping the antibiotics. Please inform her that she needs to be fasting at least an hour or 2 before doing the breath test. The antibiotics have been called into her pharmacy. Please remindpatient to take the Protonix at least once a day and twice a day if she can. If she starts the antibiotics tomorrow, she should complete them on January 08 and then she should perform the breath test on or about January 22 documented in this encounter Plan of Treatment Not on file documented as of this encounter Results * (ABNORMAL) H PYLORI BREATH TEST ANALYSIS (11/26/2022 11:57 AM EDT) BREATHTEK POSITIVE(A) NEGATIVE 11/26/2022 3:26 PM EDT [facility] 11/26/2022 11:5 7 AM EDT 11/26/2022 11:58 AM EDT Narrative [facility] - 11/26/2022 3:26 PM EDT Release to patient->Immediate Kyle Manuel PA-C LAB [facility] EJ[facility] documented in this encounter Visit Diagnoses Diagnosis H. pylori infection- Primary Helicobacter pylori (H. pylori) Epigastric pain Abdominal pain, epigastric Status post therapeutic Unspecified legally induced without mention of complication H. pylori infection Helicobacter pylori (H. pylori) documented in this encounter Care Teams Composition Floor Layer Relationship Specialty Start Date End Date Sheng May [address] [place] [address] PCP - General Internal Medicine 10/01/21 documented as of this encounter
--- OUTSIDE RECORDS SUMMARY | 2024-08-14 17:00 | XMS_ITS | Encounter Summary ---
Author Organization [facility] Address [address] [place] [address] Care Team Providers Care Explosive Operator Bomb Name Role Phone Bennett Pardo MD Primary Care Provider Sheng Mendoza Primary Care Provider [phone] Encounter Details Date Type Department Care Team Description 12/01/2018 Zika Virus Medical Records [address] [place] [address] Abstract, Provider Social History Tobacco Use Types [...] on filedocumented in this encounter Care Teams Explosive Operator Bomb Relationship Specialty Start Date End Date Bennett Pardo MD PCP - General Internal Medicine 05/12/11 09/30/21 Sheng May [address] [place] [address] PCP - General Internal Medicine 10/01/21 documented as of this encounter
--- OUTSIDE RECORDS SUMMARY | 2024-08-14 17:00 | XMS_ITS | Encounter Summary ---
[facility] Address [address] [place] [address] Care Team Providers Care Branch Coordinator Name Role Phone Bennett Pardo MD Primary Care Provider Sheng Mendoza Primary Care Provider [phone] Reason for Visit * Reason Onset Date Comments Post ER Outreach 06/26/2016 [facility], Foreign Ambrosio dy in Left Eye, 06/24/16 Encounter Details Date Type Department Care Team Description 06/26/2016 Telephone Adult [address] [address] Bennett Pardo MD Post ER Outreach ([facility], Foreign Body in Left Eye, 06/24/16) Social History Tobacco Use Types Packs/Day Years [...] on file documented as of this encounter Miscellaneous Notes * Telephone Encounter - Julio Cesar UribeP.NHan - 07/01/2016 2:37 PM EDT Telephone Information: Patient states she is all set declined appt * Telephone Encounter - Julio Cesar Eaton L.P.N. - 06/26/2016 9:25 AM EST Message states the person you have called is not available Unable to leave a message * Telephone Encounter - Martha Onofre R.N. - 06/26/2016 7:52 AM EST Pt was seen at [facility] for a foreign body in left eye on 06/24/16. Pt to be called for ED follow-up. documented in this encounter Plan of Treatment Not on file documented as of this encounter Visit Diagnoses Not on filedocumented in this encounter Care Teams Branch Coordinator Relationship Specialty Start Date End Date Bennett Pardo MD PCP - General Internal Medicine 05/12/11 09/30/21 Sheng May [address] [place] [address] PCP - General Internal Medicine 10/01/21 documented as of this encounter
--- OUTSIDE RECORDS SUMMARY | 2024-08-14 17:00 | XMS_ITS | Encounter Summary ---
Author Organization [place] [address] Care Team Providers Care Dog Sitter Name Role Phone Sheng May MD Primary Care Provider [phone] Reason for Visit * Reason Comments Follow-up ER Encounter Details Date Type Department Care Team (Late st Contact Info) Description 08/14/2024 10:45 AM EDT Office Visit Adult Medicine [address] [phone] Melinda Baron PA [address] [place] [id number] Seizure (CMS/HCC V24, CMS/HCC V28) (Primary Dx) Social History Tobacco Use Types Packs/Day Years [...] PM EDT documented as of this encounter Last Filed Vital Signs Vital Sign Reading Time Taken Comments Blood Pressure 100/64 08/14/2024 10:52 AM EDT Pulse 70 08/14/2024 10:52 AM EDT Temperature 37.2 ??C (98.9 ??F) 08/14/2024 10:52 AM E DT Respiratory Rate 14 08/14/2024 10:52 AM EDT Oxygen Saturation - - Inhaled Oxygen Concentration - - Weight 59.4 kg (131 lb) 08/14/2024 10:52 AM EDT Height 154.9 cm (5' 1 ) 08/14/2024 10:52 AM EDT Body Mass Index 24.75 08/14/2024 10:52 AM EDT documented in this encounter Progress Notes * SHAZIA Winslow - 08/14/2024 10:45 AM EDT CHIEF COMPLAINT: Follow-up (ER) IDENTIFIER: Yang Anthony is a 34 y.o. old female. Past medical history: GERD, partially treated for H. pylori infection, anxiety/depression, vitamin D deficiency, vitamin B12 deficiency, migraine headache, mild asthma and prediabetes Patient was seen at [facility] on 08/06/2024. History of Present Illness The patient presents for a follow-up after a recent seizure episode. Seizure Episode - No recurrence of seizures since hospital discharge - No prior seizure history or precipitating condition changes - No recent URI, fevers, or chills - Experienced insomnia and fatigue the day before the seizure, which occurred at home - Consumed two tablets of tramadol, patient reports prescription from her friend. She is unsure of dosage. She consumed this the night prior to seizure activity. - Recent MRI with contrast (1-2 weeks ago) was normal - Neurologist appointment scheduled for today at 2:30 PM - No prior EEG Facial Laceration - Sustained a facial laceration during the seizure, requiring suturing - Final suture removed today - Reports mild numbness, no pain or drainage - Applying cocoa butter to the scar Migraines - Experiencing mild headaches attributed to known migraines ROS: GENERAL: No malaise, significant weight loss or fever HEENT: No changes in hearing or vision, nose bleeds or other nasal problems NECK: No lumps, goiter, pain or significant neck swelling RESPIRATORY: No cough, wheezing or shortness of breath CARDIOVASCULAR: No chest pain, leg swelling or palpitations GI: No abdominal pain, hematochezia, melena : No dysuria, oliguria, polyuria, hematuria, flank pain MUSCULOSKELETAL: No joint pain or swelling, back pain, or muscle pain. SKIN: No lesions, rash or itching NEURO: No persistent headache, syncope, seizures, weakness or numbness PAST MEDICAL HISTORY: Patient Active Problem List Diagnosis Date Noted Nephrolithiasis 03/09/2024 Constipation 02/02/2024 Migraine without status migrainosus, not intractable 02/02/2024 Dysphagia 01/18/2024 H. pylori infection 01/18/2024 Helicobacter positive gastritis 01/18/2024 Gastroesophageal reflux disease without esophagitis 04/28/2023 Prediabetes 04/28/2023 Marijuana use during 10/30/2022 Breast tenderness 06/11/2022 Wheezing 10/10/2020 ASCUS with positive high risk HPV cervical 07/08/2016 B12 deficiency 12/20/2014 Iron deficiency anemia 12/20/2014 Left ovarian cyst 07/04/2014 Calculus of kidney 01/13/2013 Anxiety 07/14/2011 Back pain 05/15/2011 Past Surgical History: Procedure Laterality Date OTHER SURGICAL HISTORY PROCEDURE: [place] PUNCTURE ASPIRATION CYST OF BREAST OTHER SURGICAL HISTORY 08/03/2019 PROCEDURE: CERVICAL LEEP CONE BIOPSY [facility] PATHOLOGY EX; COMMENT: DANNIELLE 2-3 STEREOTACTIC CORE BIOPSY SOCIAL HISTORY: Social History Tobacco Use Smoking status: Former Current packs/day: 0.00 Types: Cigarettes Quit date: 11/26/2012 Years since quittin.7 Smokeless tobacco: Never Substance Use Topics Alcohol use: Yes FAMILY HISTORY: Family History Problem Relation Name Age of Onset Hypertension Mother No Known Problems Father No Known Problems Sister No Known Problems Sister Cataracts Maternal Grandmother Hypertension Maternal Grandmother Diabetes Maternal Grandmother No Known Problems Maternal Grandfather No Known Problems Paternal Grandmother No Known Problems Paternal Grandfather Other (Other: Other) Aunt myopia Blindness Neg Hx Glaucoma Neg Hx Macular degeneration Neg Hx Strabismus Neg Hx Family Status Relation Name Status Mother Alive healthy Father Alive healthy Sister Alive 20 Sister Alive 24 MGM Alive MGF Alive PGM Alive PGF Alive Aunt (Not Specified) Neg Hx (Not Specified) No partnership data on file MEDICATIONS DISCONTINUED/REORDERED: There are no discontinued medications. ACTIVE MEDICATIONS: Outpatient Medications Marked as Taking for the 08/14/24 encounter (Office Visit) with SHAZIA Winslow Medication Sig Dispense Refill albuterol HFA (PROAIR HFA ; PROVENTIL HFA ; VENTOLIN HFA) 90 mcg/actuation inhaler Inhale 2 puffs by mouth every 4 (four) hours if needed for wheezing (or cough). 6.7 g 3 kfxkgsb-kdxdcemexecbu-pjkrenij (EXCEDRIN MIGRAINE) 250-250-65 mg per tablet Take 1 Tablet by mouth every 6 hours as needed (mild to moderate headaches). cetirizine (ZyrTEC) 10 mg tablet Take 1 tablet (10 mg total) by mouth at bedtime. cholecalciferol (VITAMIN D-3) 50 mcg (2,000 unit) tablet Take 1 tablet (2,000 Units total) by mouth1 (one) time each day. 90 tablet 3 cyanocobalamin (VITAMIN B-12) 1,000 mcg tablet Take 1 tablet (1,000 mcg total) by mouth 1 (one) time each day. 90 tablet 3 docusate sodium (COLACE) 100 mg capsule Take 1 Capsule by mouth 2 times daily as needed for Constipation. ferrous sulfate 325 mg (65 mg iron) EC tablet Take 1 tablet (325 mg total) by mouth 1 (one) time each day with breakfast. Do not crush, chew, or split. 90 each 1 FLUoxetine (PROzac) 10 mg tablet Take 1 tablet (10 mg total) by mouth 1 (one) time each day. 90 tablet 1 folic acid (FOLVITE) 1 mg tablet Take 1 tablet (1 mg total) by mouth 1 (one) time each day. 90 each1 magnesium oxide (MAG-OX) 400 mg (241.3 elemental magnesium) tablet Take 1 tablet (400 mg total) by mouth 1 (one) time each day. 90 tablet 3 nicotine (NICODERM CQ) 14 mg/[address] 1 patch on the skin 1 (one) time each day at the same time. 30 each 1 omeprazole (PriLOSEC) [address] capsule Take 1 capsule (40 mg total) by mouth 1 (one) time each day.90 capsule 1 nxisfkayea-uovmiosjq-jhuidfprc (Talicia) 10-250-12.5 mg capsule,IR - delay rel,biphase Take 4 capsules by mouth every 8 (eight) hours. vit,jelena 48-xrhv-fvqdo 27 mg iron- 1 mg tablet Take 1 tablet by mouth 1 (one) time each day. 30 each 0 riboflavin (VITAMIN B2) 400 mg tablet Take 1 tablet (400 mg total) by mouth 1 (one) time each day. 90 tablet 3 SUMAtriptan (IMITREX) 50 mg tablet Take 1 tablet for severe headache, may repeat dose once after 2 hours, if needed. ALLERGIES: Allergies Allergen Reactions Shellfish Containing Products Anaphylaxis Seafood Ibuprofen Stomach pains PHYSICAL EXAM: Vitals: 08/14/24 1052 BP: 100/64 Pulse: 70 Resp: 14 Temp: 37.2 ??C (98.9 ??F) Physical Exam APPEARANCE: Alert and in no acute distress. EYES: PERRLA, conjunctiva and sclera normal. EARS: External ears normal. Canals clear. TMs normal. NOSE/SINUS: Nares normal. Septum midline. Mucosa normal. No drainage or sinus tenderness. MOUTH/THROAT: No erythema or exudates. Well-healing laceration over the right upper vermilion border NECK: Neck supple, no adenopathy, thyroid symmetric and of normal size. HEART: RRR with normal S1 and S2, no murmurs, no gallops. LUNG: Clear to auscultation, no wheezing, rales, or rhonchi. Able to talk in full complete sentences. EXTREMITIES: Extremities warm and well perfused without clubbing, cyanosis, or edema. MUSCULOSKELETAL: Strength 5/5 to bilateral upper/lower extremities. NEURO: Awake, alert and oriented x 3. No focal neurological deficits. LABS: Results for orders placed or performed during the hospital encounter of 08/06/24 Culture urine Collection Time: 08/06/24 6:09 PM Specimen: Urine, Clean Catch Result Value Ref Range Culture, Urine 50,000-99,000 CFU/mL Mixed urogenital isabella, no uropathogens present. Suggest repeat specimen if clinically indicated. Basic metabolic panel Collection Time: 08/06/24 6:09 PM Result Value Ref Range Sodium 140 133 - 145 mmol/L Potassium 4.2 3.5 - 5.5 mmol/L Chloride 108 96 - 110 mmol/L CO2 28 21 - 32 mmol/L Anion Gap 4 3 - 11 Glucose 77 70 - 100 mg/dL BUN 11 5 - 25 mg/dL Creatinine 0.59 0.50 - 1.10 mg/dL eGFR 122 >=60 mL/min/1.73m2 BUN/Creatinine Ratio 18.6 Calcium 8.8 8.5 - 10.5 mg/dL Magnesium Collection Time: 08/06/24 6:09 PM Result Value Ref Range Magnesium 1.9 1.9 - 2.6 mg/dL Prolactin Collection Time: 08/06/24 6:09 PM Result Value Ref Range Prolactin 156.40 See Comment ng/mL CBC auto differential Collection Time: 08/06/24 6:09 PM Result Value Ref Range WBC 4.7 (L) 4.8 - 10.8 K/mcL RBC 3.70 (L) 3.80 - 4.80 M/mcL Hemoglobin 10.3 (L) 11.5 - 16.0 g/dL Hematocrit 32.9 (L) 35.0 - 47.0 % MCV 90.1 79.0 - 98.0 FL MCH 28.2 27.0 - 32.0 pcg MCHC 31.3 (L) 32.0 - 37.0 g/dL RDW 13.9 11.0 - 15.0 % Platelets 216 130 - 400 K/mcL MPV 9.8 7.0 - 11.0 FL NRBC 0.0 <1.0 % NRBC Absolute 0.00 <0.10 K/mcL Neutrophils Relative 47.7 % Lymphocytes Relative 40.1 % Monocytes Relative 8.4 % Eosinophils Relative 3.0 % Basophils Relative 0.4 % Immature Granulocytes Relative 0.4 % Neutrophils Absolute 2.26 1.50 - 7.00 K/mcL Lymphocytes Absolute 1.90 1.00 - 5.00 K/mcL Monocytes Absolute 0.40 0.20 - 1.00 K/mcL Eosinophils Absolute 0.14 0.00 - 0.50 K/mcL Basophils Absolute 0.02 0.00 - 0.20 K/mcL Immature Granulocytes Absolute 0.02 0.00 - 0.03 K/mcL Urinalysis with reflex microscopic and culture Collection Time: 08/06/24 6:09 PM Result Value Ref Range Specific [place] Urine 1.020 1.003 - 1.030 pH, Urine 6.5 5.0 - 8.0 pH Leukocytes, Urine Trace (A) Negative Nitrite, Urine Negative Negative Protein, Urine Trace <=Trace mg/dL Glucose, Urine Negative Negative mg/dL Ketones, Urine Negative Negative mg/dL Urobilinogen, Urine 1.0 0.2 - 1.0 mg/dL Bilirubin, Urine Negative Negative Blood, Urine Negative Negative RBC, Urine 2 0 - 4 /HPF WBC, Urine 10 (H) 0 - 4 /HPF Squamous Epithelial, Urine >100 (H) 0 - 60 /LPF Non-Squamous Epithelial, Urine Rare Transitional epithelial cells. /LPF Bacteria, Urine Moderate (A) Negative /HPF Hyaline Casts, Urine 3 0 - 3 /LPF Other Casts, Urine Rare Fine Granular casts. /LPF Donnel[place] urine culture tube Collection Time: 08/06/24 6:09 PM Result Value Ref Range Extra Tube Hold for add-ons. Cardiac Enzymes - CPK Collection Time: 08/06/24 6:09 PM Result Value Ref Range Total CK 132 22 - 269 unit/L POC , urine manually resulted Collection Time: 08/06/24 6:15 PM Result Value Ref Range HCG, Ur POC Negative Negative POC hCG Int QC Pass? Yes Yes EXPIRATION DATE POC 01/30/2026 LOT NUMBER POC 214887 POCT Glucose, blood Collection Time: 08/06/24 7:14 PM Result Value Ref Range Glucose POCT 85 70 - 100 mg/dL Troponin I high sensitivity Collection Time: 08/06/24 7:53 PM Result Value Ref Range High Sensitivity Troponin I 4 <=54 ng/L ECG 12 lead Collection Time: 08/06/24 8:00 PM Result Value Ref Range Ventricular Rate ECG 74 BPM Atrial Rate 74 BPM P-R Interval 170 ms QRS Duration 76 ms Q-T Interval 376 ms QTc 417 ms P Wave Waller 52 degrees R Waller 73 degrees T Waller 51 degrees ECG Interpretation Normal sinus rhythm Normal ECG No previous ECGs available Confirmed by Hemal FAJARDO JAMES ([id number]) on 08/07/2024 12:48:18 PM IMAGING: CT cervical spine without contrast Comparison: None Findings: No acute fracture or dislocation. Posterior alignment is normal. No significant degenerative change. No radiopaque foreign bodies. IMPRESSION: Impression: No acute processes CT maxillofacial without contrast Comparison: None Findings: [...] anterior to maxilla No acute bony abnormality. CT head without contrast Comparison: None Findings: No acute intracranial fluid collection or hematoma. 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 No acute process in sinuses or mastoids. No acute bony abnormality. IMPRESSION: Impression: No acute intracranial process IMPRESSION: 1. Seizure ([facility] V24, [facility] V28) Emergency department note, imaging, labs reviewed and discussed with patient during office visit today. Assessment & Plan 1. Seizure - Potentially attributed to tramadol intake. - Normal CT and MRI results. - Continue follow-up with neurologist today; neurologist to provide work clearance. - EEG may be conducted if necessary. 2. Facial laceration - Final suture removed; mild numbness, no pain or drainage. - Continue using cocoa butter for scar healing. - No infection or complications. 3. Headaches: Chronic. - Mild headaches attributed to known migraines. - No new medications or alcohol changes reported. - Monitor headache frequency and severity; report significant changes. Follow-up - Scheduled follow-up in 3 months to monitor seizure activity and overall health. - Contact clinic if issues arise before next appointment. I have obtained verbal consent from Yang Anthony prior to the recording. I have advised Yang Anthony that she may refuse the recording and require the recording to be turned off at any timeduring this encounter. All questions and concerns were addressed. Yang Anthony verbalizes understanding and agrees with this treatment plan. Patient was reminded to call or return to the office if any new or existing problems arise. No orders of the defined types were placed in this encounter. None SHAZIA Winslow on 08/14/2024 at 12:46 PM EDT Today's documentation was made using voice recognition software.This note may contain grammatical errors secondary to this software. documented in this encounter Plan of Treatment Upcoming Encounters Date Type Department Care Team (Late st Contact Info) Description 10/31/2024 10:55 AM EDT Appointment Radiology Department - [address] [place] [address] [phone] 11/13/2024 2:00 PM EDT Office Visit Adult Medicine [place] - [address] [place] [address] [address] Melinda Baron PA [address] [place] [address] documented as of this encounter Visit Diagnoses Diagnosis Seizure (CMS/HCC V24, CMS/HCC V28)- Primary Other convulsions documented in this encounter Care Teams Dog Sitter Relationship Specialty Start Date End Date Sheng May MD [address] [place] [address] PCP - General Internal Medicine 10/01/21 documented as of this encounter
--- OUTSIDE RECORDS SUMMARY | 2024-08-14 17:01 | XMS_ITS | Encounter Summary ---
Author Organization [facility] Address [address] [place] [address] Care Team Providers Care Guest Relations Receptionist Name Role Phone Bennett Pardo MD Primary Care Provider Sheng Mendoza Primary Care Provider [phone] Encounter Details Date Type Department Care Team Description 07/27/2014 Release of Information Medical Records [address] [place] [id number] Abstract, Provider Social History Tobacco Use Types [...] on filedocumented in this encounter Care Teams Guest Relations Receptionist Relationship Specialty Start Date End Date Bennett Pardo MD PCP - General Internal Medicine 05/12/11 09/30/21 Sheng May [address] [place] [id number] PCP - General Internal Medicine 10/01/21 documented as of this encounter
--- OUTSIDE RECORDS SUMMARY | 2024-08-14 17:01 | XMS_ITS | Encounter Summary ---
Author Organization [facility] Address [address] [place] [address] Care Team Providers Care Aerologist Name Role Phone Bennett Pardo MD Primary Care Provider Sheng Mendoza Primary Care Provider [phone] Reason for Visit * Reason Onset Date Comments Provider Call Back 08/16/2020 Encounter Details Date Type Department Care Team Description 08/16/2020 Telephone Gastroenterology - [place] [address] [phone] Kyle Manuel PA-C [address] [place] [address] Provider Call Back Social History Tobacco Use Types Packs/Day Years [...] Exposure Response Date Recorded In the last month, have you been in contact with someone who was confirmed or suspected to have Coronavirus / COVID-19? No / Unsure 08/19/2020 8:18 AM EDT documented as of this encounter Miscellaneous Notes * Telephone Encounter - Kyle Manuel PA-C - 08/16/2020 4:35 PM EDT Not sure if other labs do the breath test and if not then she will have to wait for Wednesday to do the test here at [address]. * Telephone Encounter - Corinne Recinos - 08/16/2020 3:57 PM EDT Spoke to the patient and asked if she had done the breath test. She claims she didn't because she feels like she still has it (the infection) She also finished her medications and has been off the Omeprazole for more than 2 weeks. I told her she should have the test done and if it does come back positive, we will call her with the next steps from there, even if it means restarting the process butto wait for our call with results. I also advised her not to eat or smoke 1 to 2 hours before the test. She will go tomorrow morning to have it done. * Telephone Encounter - Kyle Manuel PA-C - 08/16/2020 2:35 PM EDT Patient was supposed to perform a breath test on or after August 01 after 2 weeks stopping the omeprazole. Please remind patient that she needs to perform the breath test and so we can determine if she still has the bacteria in her stomach. She needs to be off the omeprazole for 2 weeks, and the breath test will take about a half an hour to perform. She also is not to smoke or eat at least an houror 2 before the test. * Telephone Encounter - Rebecca Frances - 08/16/2020 8:49 AM EDT Patient is calling because her antibiotics are not subsiding her symptoms. Patient is booked for Kyle's next available but wants to know what she should do in the meantime because she still is in pain. Please contact the patient [phone] documented in this encounter Plan of Treatment Not on file documented as of this encounter Visit Diagnoses Not on filedocumented in this encounter Care Teams Aerologist Relationship Specialty Start Date End Date Bennett Pardo MD PCP - General Internal Medicine 05/12/11 09/30/21 Sheng May [address] [place] [address] PCP - General Internal Medicine 10/01/21 documented as of this encounter
--- OUTSIDE RECORDS SUMMARY | 2024-08-14 17:01 | XMS_ITS | Encounter Summary ---
Author Organization [facility] Address [address] [place] [address] Care Team Providers Care Solar Project Engineer Name Role Phone Sheng May Primary Care Provider Encounter Details Date Type Department Care Team Description 11/17/2023 Telephone Adult Medicine [address] [address] Sheng May [address] [place] [id number] Social History Tobacco Use Types Packs/Day Years Used Date Smoking Tobacco: Some Days Cigarettes 1 2 Last attempted to quit: 11/26/2012 Smokeless Tobacco: Never Comments:1 to 2 cigarettes a day Alcohol Use Standard Drinks/Week Comments Not Currently [...] on filedocumented in this encounter Care Teams Solar Project Engineer Relationship Specialty Start Date End Date Sheng May [address] [place] [phone] PCP - General Internal Medicine 10/01/21 documented as of this encounter
--- OUTSIDE RECORDS SUMMARY | 2024-08-14 17:01 | XMS_ITS | Encounter Summary ---
[facility] Address [address] [place] [address] Care Team Providers Care Painter And Body Work Name Role Phone Bennett Pardo MD Primary Care Provider Sheng Mendoza Primary Care Provider Encounter Details Date Type Department Care Team Description 09/03/2020 Telephone Gastroenterology - [place] [address] [facility] [address] [place] [phone] Kyle Manuel PA-C [address] [facility] [address] [place] [address] Social History Tobacco Use Types Packs/Day Years [...] have Coronavirus / COVID-19? No / Unsure 09/06/2020 1:22 PM EDT documented as of this encounter Miscellaneous Notes * Telephone Encounter - Corinne Recinos - 09/03/2020 3:23 PM EDT She is taking Metronidazole 500mg Flagyl. She doesn't want to use this medication. Please send substitution. Thanks. * Telephone Encounter - Kyle Manuel PA-C - 09/03/2020 2:12 PM EDT Find out which medication is in agreement with her. It may be the Flagyl or the Biaxin and we can make substitutions or she can just stop taking the Flagyl however she needs to be on treatment for a full 2 weeks to see if we can get rid of the bacteria in her stomach and if she does not complete treatment then there is a lower chance that she will get rid of the bacteria in her stomach. documented in this encounter Plan of Treatment Not on file documented as of this encounter Visit Diagnoses Not on filedocumented in this encounter Care Teams Painter And Body Work Relationship Specialty Start Date End Date Bennett Pardo MD PCP - General Internal Medicine 05/12/11 09/30/21 Sheng May [address] [place] [id number] PCP - General Internal Medicine 10/01/21 documented as of this encounter
--- OUTSIDE RECORDS SUMMARY | 2024-08-14 17:01 | XMS_ITS | Clinical Summary ---
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 1 g 2 02/19/2023 Active cetirizine (ZYRTEC) 10 MG tablet Take 1 Tablet by mouth at bedtime. 14 Tablet 0 04/28/2023 Active Amoxicill-Rifabutin -Omeprazole 250-12.5-10 MG CAPSULE DELAYED RELEASE Take 4 Capsules by mouth every 8 hours. 168 Capsule 0 07/06/2023 Active pantoprazole (Protonix) 40 MG tablet Take 1 Tablet by mouth 2 times daily for 14 days. 28 Tablet 0 11/24/2023 Active fluoxetine (PROZAC) 10 MG tablet Take 1 Tablet by mouth daily. 30 Tablet 1 12/21/2023 Active Cholecalciferol (Vitamin D) 50 MCG (2000 UT) Tab Take 1 Tablet by mouth daily. 90 Tablet 1 02/02/2024 Active famotidine (PEPCID) 20 MG tablet Take 1 Tablet by mouth 2 times daily. 60 Tablet 4 02/02/2024 Active docusate sodium (Colace) 100 MG capsule Take 1 Capsule by mouth 2 times daily as needed for Constipation. 180 Capsule 1 02/02/2024 Active Magnesium Oxide -Mg Supplement (MagOx 400) 400 (240 Mg) MG Tab Take 1 Tablet by mouth daily. 90 Tablet 1 02/02/2024 Active Riboflavin 400 MG Tab Take 400 mg by mouth daily. 90 Tablet 1 02/02/2024 Active aspirin-acetaminoph en-caffeine (Excedrin Extra Strength) 250-250-65 MG per tablet Take 1 Tablet by mouth every 6 hours as needed (mild to moderate headaches). 60 Tablet 2 02/02/2024 Active sumatriptan (Imitrex) 50 MG tablet Take 1 tablet for severe headache, may repeat dose once after 2 hours, if needed. 10 Tablet 3 02/02/2024 Active Active Problems Problem Noted Date Constipation 02/02/2024 Migraine without status migrainosus, not intractable 02/02/2024 Prediabetes 04/28/2023 Gastroesophageal reflux disease without esophagitis 04/28/2023 BMI 24.0-24.9, adult 10/30/2022 Overview: ? ? BMI 18.5 to 24.9 kg/m2 (normal weight) - Weight gain 25 to 35 lb (11.5 to 16.0 kg) Marijuana use during Overview: 10/30/22: states using for nausea; encouraged to d/c use; risks reviewed. Will try vit B6 and unisom Breast tenderness 06/11/2022 Last Assessment & Plan: Patient instructed to avoid fatty foods and caffeine in her diet. Encouraged to wear a tight fitting bra. Reassured that exam is normal today. Wheezing 10/10/2020 ASCUS with positive high risk HPV cervic al 07/08/2016 Overview: 06/26/2016 Papsmear ASCUS HR HPV + 05/26/2019 Papsmear ASCUS HR HPV + 07/25/2019 Colposcopy DANNIELLE 2-3 08/03/2019 LEEP DANNIELLE 2 negative margins 11/07/2020 Papsmear NSIL HR HPV NEG Iron deficiency anemia 12/20/2014 Overview: Pt undergoing [facility] S/p Hem consult --PICA eating Ice and Talcum powder have resolved and labs improved ---cont to take IRON daily for at least 3 months pp, as per Heme recommendations 01/31/2015 Ferrous gluconate ordered B12 deficiency 12/20/2014 Overview: BOdabraham def. -IM injections at time of Iron infusion Left ovarian cyst 07/04/2014 Nephrolithiasis 01/13/2013 Anxiety 07/14/2011 Back pain 05/15/2011 Helicobacter positive gastritis Kidney stones H. pylori infection History of Helicobacter pylori infection Dysphagia History of migraine headaches Resolved Problems Problem Noted Date Resolved Date Supervision of normal 11/29/2018 02/19/2022 Overview: [facility]. [facility] [place] 2. Delivery site: [facility] 3. Dating criteria: LMP only 3. Blood type: A+ 4. Genetic screening: Date: Result: 5. GBS: Date: 6. FOB name: 7. Plans A. Epidural or other pain management - B. Labor support identified - C. Tdap - Date: D. Breast or Bottle feed: E. Baby's name - F. Circumcision - Zika assessment screening: negative Ovarian cyst in 07/12/20142021 Supervision of other normal 07/11/2014 10/30/2015 Overview: 1. [facility] site: [place] 2. Delivery site: [facility] 3. Dating criteria: LMP and dating U/S do not match-DR to determine 3. Blood type: A+ 4. Genetic screening: Date: 08/09/2014 Result: negative -----Normal anatomy scan at 18.1 wks 5. GBS: Date: 01/17 negative 6. FOB name: Toby Duarte 7. Plans A. Epidural or other pain management - unmedicated labor B. Labor support identified - FOB and sister (Bertha) C. Tdap - Date: 01/17 Flu vaccine 01/17 D. Breast or Bottle feed: breast E. Baby's name - F. Circumcision - yes IMO update Supervision of other normal 12/20/2013 12/28/2013 Overview: FOB involved; [facility] Hx depression: no issues in over 3 years; monitor closely post Hx second trimester loss IMO update Rubella non-immune status, antepartum 12/05/2013 02/19/2022 Overview: Needs vaccination Nausea 02/19/2022 Postprandial epigastric pain 06/2021 Abdominal bloating 02/19/2022 Abdominal discomfort in left lower quadrant 02/19/2022 Abdominal cramping 02/19/2022 Straining with stools 02/19/2022 Epigastric pain 02/19/2022 Immunizations Name Administration Dates Next Due Hepatitis B > 19yrs 11/13/2020 Influenza (> 6 Months) 12/27/2012 Influenza (>6 Months) Split Preservative Free Influenza Vaccine-preservati ve Free-quadrivalent 4 Years 03/14/2019 Influenza vaccine high dose age 65 and over 06/2022 PPD-RBMG 09/25/2020,12/27/2012 Tdap 01/17/2015,07/14/2011 Family History Medical History Relation Name Comments Other Aunt myopia No Known Problems Father No Known Problems Maternal Grandfather Cataract Maternal Grandmother Hypertension Maternal Grandmother Hypertension Mother No Known Problems Paternal Grandfather No Known Problems Paternal Grandmother No Known Problems Sister 1 No Known Problems Sister 2 Blindness Negative Hx Glaucoma Negative Hx Macular Degeneration Negative Hx Strabismus Negative Hx Relation Name Status Comments Aunt Father [...] file Not on file Not on file Last Filed Vital Signs Vital Sign Reading Time Taken Comments Blood Pressure 90/60 12/21/2023 11:31 AM EDT Pulse 70 12/21/2023 11:31 AM EDT Temperature 36.7 ??C (98 ??F) 12/21/2023 11:31 AM EDT Respiratory Rate 17 12/21/2023 11:31 AM EDT Oxygen Saturation 100% 11/24/2023 1:23 PM EDT Inhaled Oxygen Concentration - - Weight 54.9 kg (121 lb) 12/21/2023 11:31 AM EDT Height 157.5 cm (5' 2 ) 02/02/2024 11:13 AM EDT Body Mass Index 22.13 12/21/2023 11:31 AM EDT Plan of Treatment Health Maintenance Due Date Last Done Comments Covid-19 Vaccine (#1) 01/13/1992 CERVICAL CANCER SCREENING 06/11/20232022, 11/07/2020, 05/26/2019, Additional history exists DEPRESSION SCREENING/FOLLOWUP 04/19/2024, 04/28/2023, 08/09/2019, Additional history exists SOCIAL NEEDS SCREENING 04/19/2024 , 10/10/2020 (Completed), 05/26/2019 (Completed) INFLUENZA (Season Ended) 2024 023, 03/14/2019, 01/17/2015, Additional history exists DTAP/TDAP/TD (4 - Td or Tdap) 01/17/2025, 07/14/2011, 05/09/2011 BASELINE HEALTH EXAM 18-39 02/23/202802/22, 02/19/2023, 10/09/2020, Additional history exists CHOLESTEROL SCREENING 02/23/2028 02/22/2023 , 10/16/2020, 03/14/2019, Additional history exists PNEUMOCOCCAL VACCINE FOR HIG H RISK PATIENTS (#1) 07/12/2056 Care Teams Oracle Erp Architect Relationship Specialty Start Date [place] [address] PCP - General Internal Medicine 10/01/21
--- OUTSIDE RECORDS SUMMARY | 2024-08-14 17:01 | XMS_ITS | Encounter Summary ---
Author Organization [employer] [facility] Address [address] [place] [address] Care Team Providers Care Clergy Member Name Role Phone Bennett Pardo MD Primary Care Provider Sheng Mendoza Primary Care Provider [phone] Encounter Details Date Type Department Care Team Description 12/29/2013 Hospital Medical Records [address] [place] [address] Edna Carrizales MD Social History Tobacco Use Types Packs/Day Years [...] on filedocumented in this encounter Care Teams Clergy Member Relationship Specialty Start Date End Date Bennett Pardo MD PCP - General Internal Medicine 05/12/11 09/30/21 Sheng May [address] [place] [address] PCP - General Internal Medicine 10/01/21 documented as of this encounter
--- OUTSIDE RECORDS SUMMARY | 2024-08-14 17:01 | XMS_ITS | Encounter Summary ---
Author Organization [facility] Address [address] [place] [address] Care Team Providers Care Embossograph Operator Name Role Phone Bennett Pardo MD Primary Care Provider Sheng Mendoza Primary Care Provider [phone] Encounter Details Date Type Department Care Team Description 11/05/2020 Telephone Gastroenterology - [place] 175 [facility] [address] [place] [phone] Kyle Manuel PA-C 175 [facility] 200 [place] [address] Social History Tobacco Use Types Packs/Day Years [...] have Coronavirus / COVID-19? No / Unsure 11/07/2020 1:37 PM EDT documented as of this encounter Miscellaneous Notes * Telephone Encounter - Kyle Manuel PA-C - 11/05/2020 12:18 PM EDT Patient's insurance will not cover omeprazole 40 mg twice a day thus we will order omeprazole 20 mgto be taken twice a day documented in this encounter Plan of Treatment Not on file documented as of this encounter Visit Diagnoses Not on filedocumented in this encounter Care Teams Embossograph Operator Relationship Specialty Start Date End Date Bennett Pardo MD PCP - General Internal Medicine 05/12/11 09/30/21 Sheng May [address] [place] [address] PCP - General Internal Medicine 10/01/21 documented as of this encounter
--- OUTSIDE RECORDS SUMMARY | 2024-08-14 17:01 | XMS_ITS | Encounter Summary ---
[facility] Organization [facility] Address [address] [place] [address] Care Team Providers Care Edger Machine Setter Name Role Phone Bennett Pardo MD Primary Care Provider Sheng Mendoza Primary Care Provider [phone] Encounter Details Date Type Department Care Team Description 08/19/2020 Telephone Gastroenterology - [place] 175 [facility] [address] [place] [phone] Kyle Manuel PA-C 175 [facility] [address] [place] [address] Social History Tobacco Use Types Packs/Day Years [...] * Telephone Encounter - Corinne Recinos - 08/23/2020 8:19 AM EDT Spoke to the patient and lether know that her prescriptions have been sent to the pharmacy since her test came back positive for the bacteria. She has already picked them up and started taking them. * Telephone Encounter - Kyle Manuel PA-C - 08/19/2020 11:16 AM EDT Please let patient know that she still has the bacteria in her stomach and will try a second round line of medications to take for 14 days. Prescription has been sent to the [facility]. documented in this encounter Plan of Treatment Not on file documented as of this encounter Visit Diagnoses Not on filedocumented in this encounter Care Teams Edger Machine Setter Relationship Specialty Start Date End Date Bennett Pardo MD PCP - General Internal Medicine 05/12/11 09/30/21 Sheng May [address] [place] [address] PCP - General Internal Medicine 10/01/21 documented as of this encounter
--- OUTSIDE RECORDS SUMMARY | 2024-08-14 17:01 | XMS_ITS | Encounter Summary ---
Author Organization [facility] Address [address] [place] [address] Care Team Providers Care Motorized Squad Lieutenant Name Role Phone Sheng May Primary Care Provider [phone] Encounter Details Date Type Department Care Team Description 05/05/2022 Orders Only Gastroenterology - [place] 175 [facility] [address] [place] [phone] Kyle Manuel PA-C 175 [facility] [address] [place] [address] Epigastric pain; Heartburn; Globus sensation Social History Tobacco Use Types Packs/Day Years [...] Procedure Name Priority Date/Time Associated Diagnosis Comments CHG RADIOLOGIC EXAM ESOPHAGUS SINGLE CONTRAST STUDY Routine 05/05/2022 Epigastric pain Heartburn Globus sensation documented in this encounter Results * RADIOLOGIC EXAM ESOPHAGUS SINGLE CONTRAST STUDY (05/05/2022) Kyle Manuel PA-C RADIOLOGY documented in this encounter Visit Diagnoses Diagnosis Epigastric pain Abdominal pain, epigastric Heartburn Globus sensation Gastrointestinal malfunction arising from mental factors documented in this encounter Care Teams Motorized Squad Lieutenant Relationship Specialty Start Date End Date Sheng May [address] [place] [address] PCP - General Internal Medicine 10/01/21 documented as of this encounter
--- OUTSIDE RECORDS SUMMARY | 2024-08-14 17:01 | XMS_ITS | Encounter Summary ---
Author [facility] Address [address] [place] [address] Care Team Providers Care Golf Ball Molder Name Role Phone Sheng May Primary Care Provider [phone] Encounter Details Date Type Department Care Team Description 04/01/2022 Telephone Gastroenterology - [place] 175 [facility] [address] [place] [phone] Kyle Manuel PA-C 175 [facility] 200 [place] [address] Social History Tobacco Use Types Packs/Day Years [...] was confirmed or suspected to have Coronavirus/COVID-19? Unable to assess 04/01/2022 7:59 AM EST documented as of this encounter Miscellaneous Notes * Telephone Encounter - Corinne Recinos - 04/01/2022 9:51 AM EST Booked Barium Swallow at [address] [place] [address] for patient on May 05 at 9am w/ arrival at 8:40am. Called the patient to notify of appointment details, including nothing to eat/drink after midnight. I also mailed an appointment letter. Order has been faxed to [phone]. * Telephone Encounter - Kyle Manuel PA-C - 04/01/2022 8:45 AM EST Still have having some slight issues with swallowing. There is an order in for the barium swallow, please schedule and I will be in touch with her in regards to results documented in this encounter Plan of Treatment Not on file documented as of this encounter Visit Diagnoses Not on filedocumented in this encounter Care Teams Golf Ball Molder Relationship Specialty Start Date End Date Sheng May [address] [place] [address] PCP - General Internal Medicine 10/01/21 documented as of this encounter
--- OUTSIDE RECORDS SUMMARY | 2024-08-14 17:01 | XMS_ITS | Encounter Summary ---
Author Organization [facility] Address [address] [place] [address] Care Team Providers Care Driver Operator Name Role Phone Bennett Pardo MD Primary Care Provider Sheng Mendoza Primary Care Provider [phone] Reason for Visit * Reason Onset Date Comments TEST RESULTS 03/18/2020 Encounter Details Date Type Department Care Team Description 03/18/2020 Telephone Adult Medicine [address] [address] Bennett Pardo MD TEST RESULTS Social History Tobacco Use Types Packs/Day Years [...] have Coronavirus / COVID-19? No / Unsure 03/11/2020 9:24 AM EST documented as of this encounter Miscellaneous Notes * Telephone Encounter - Rosa Bustamante M.A. - 03/19/2020 10:19 AM EST Pt ADVISED OF RESULTS. * Telephone Encounter - SHAZIA Alvares - 03/18/2020 4:46 PM EST Patient was sent a [employer] message regarding her results. Did she not see this? * Telephone Encounter - Claudia Abebe M.A. - 03/18/2020 4:23 PM EST Pt requesting results please review * Telephone Encounter - Diego Chow - 03/18/2020 4:12 PM EST Inform patient: ANY URGENT OR ABNORMAL RESULTS WIILL RESULT IN A CALL BACK TO THE PATIENT SHAYNE. Type of test: :BLOOD/URINE Date test was performed: 03/11/2020 Where was the test performed: [facility] Who ordered this test?: Bennett Pardo Is the doctor here today?: NO Can the message wait until the doctor returns?: YES IF PATIENT'S PCP IS NOT IN INSTRUCT PATIENT THAT THEY WILL RECEIVE A CALL BACK WHEN THE PCP IS IN THE OFFICE NEXT. documented in this encounter Plan of Treatment Not on file documented as of this encounter Visit Diagnoses Not on filedocumented in this encounter Care Teams Driver Operator Relationship Specialty Start Date End Date Bennett Pardo MD PCP - General Internal Medicine 05/12/11 09/30/21 Sheng May [address] [place] [address] PCP - General Internal Medicine 10/01/21 documented as of this encounter
--- OUTSIDE RECORDS SUMMARY | 2024-08-14 17:01 | XMS_ITS | Encounter Summary ---
Author Organization [employer] [facility] Address [address] [place] [address] Care Team Providers Care Field Operations Coordinator Name Role Phone Bennett Pardo MD Primary Care Provider Sheng Mendoza Primary Care Provider [phone] Encounter Details Date Type Department Care Team Description 09/03/2020 Telephone Gastroenterology - [place] 175 [facility] [address] [place] [phone] Kyle Manuel PA-C 175 [facility] 200 [place] [address] Social History Tobacco Use Types Packs/Day Years [...] encounter Miscellaneous Notes * Telephone Encounter - SHAZIA Alvares - 10/10/2020 8:20 AM EDT Patient seen with GI on 09/12/2020 plan states after being seen today, we are going to start her onLevaquin 500 mg daily, Biaxin 500 mg twice daily both for 14 days and restart the omeprazole twice daily on an empty stomach. She will then perform a breath test 1 month after starting medication andis aware that she needs to be off of the omeprazole for 2 weeks so we do not get a false negative study. In office for physical patient tells me she could not tolerate antibiotics due to side effectof drowsiness. She never completed treatment and did not inform GI of this. She is asking if GI cansuggest an alternate. She has been advised to contact their office. FYI to GI provider who has beenfollowing pt for this. * Telephone Encounter - Kyle Manuel PA-C - 09/04/2020 12:37 PM EDT The problem is is that she was supposed to start the prescription on August 19 and should have been completed with the treatment by September 02 which means she already should be done. It does not do any good to add a medication at this point. She should do the breath test in 2 weeks after stopping the PPI and see if that will show us if she still has the infection or not. * Telephone Encounter - Corinne Recinos - 09/04/2020 11:21 AM EDT Spoke to patient and she wants to try the Biaxin since she cannot tolerate Flagyl. * Telephone Encounter - Kyle Manuel PA-C - 09/03/2020 5:09 PM EDT There is not a substitution for Flagyl as this is treating any anaerobic bacteria that could be growing in her stomach. She is running the risk of not being treated properly if she does not take the medication as directed. documented in this encounter Plan of Treatment Not on file documented as of this encounter Visit Diagnoses Not on filedocumented in this encounter Care Teams Field Operations Coordinator Relationship Specialty Start Date End Date Bennett Pardo MD PCP - General Internal Medicine 05/12/11 09/30/21 Sheng May [address] [place] [id number] PCP - General Internal Medicine 10/01/21 documented as of this encounter
== END 2024-08-14 15:22 | disposition home or self-care (01) ==
LOC: HO.HSMS 14:13
PROVIDERS: PCP Internal Medicine; Visit Provider Nurse Practitioner Family
DX: R56.9 Unspecified convulsions (principal); Q04.9 Congenital malformation of brain, unspecified
CPT/HCPCS: 99214

== ENCOUNTER → 2024-08-14 14:12 | Outpatient (BNVA) | payer OTHER, SELFPAY | PROVIDERS: PCP Internal Medicine; Visit Provider Nurse Practitioner Family | DX: R56.9 Unspecified convulsions (principal); Q04.9 Congenital malformation of brain, unspecified | CPT/HCPCS: 99212 ==

== ENCOUNTER 2024-10-12 13:24 | Outpatient (REF) | payer OTHER, SELFPAY ==
--- NOTE | 2024-10-12 13:27 | EEG_ITS ---
This is a 16-channel EEG with an EKG lead. The patient is reported awake during the tracing. Background EEG rhythm is 16 hertz or faster, 5 to 20 microvolt posteriorly and lower amplitude fast anteriorly during wakefulness. The patient transitioned into drowsiness with generalized slowing. Frequent lead and muscle artifacts are noted. Cardiac lead did not reveal any significant abnormality. No definite sharp wave spikes or paroxysmal tendency noted. IMPRESSION: No significant abnormality noted on this EEG. If seizure disorder is strongly suspected ambulatory EEG is recommended. MD BHAVYA De Anda/IVELISSE / [id number]
== END 2024-10-12 13:25 | disposition home or self-care (01) ==
LOC: HO.NEURO 13:24
PROVIDERS: PCP Internal Medicine; Visit Provider Nurse Practitioner Family
DX: R56.9 Unspecified convulsions (principal)
CPT/HCPCS: 95816

== ENCOUNTER 2024-10-31 11:27 | Outpatient (REF) | payer OTHER, SELFPAY ==
[2024-10-31 14:01] LABS: White Blood Count 2.9 X10*3/uL (4.8-10.8)
[2024-10-31 14:02] LABS: Hematocrit 33.8 % (37.0-47.0); Hemoglobin 10.9 g/dl (12.0-16.0); Imm Gran Abs Auto 0.00 X10*3/uL (0.00-0.03); Imm Gran Pct Auto 0.0 % (0.0-0.4); Lymphocytes Absolute Auto 1.6 X10*3/uL (1.2-4.9); MANUAL DIFF FLAG SCAN; Mean Corpuscular HGB Conc 32.2 g/dl (31.0-35.0); Mean Corpuscular Hemoglobin 28.2 pg (27.0-33.0); Mean Corpuscular Volume 87.6 fL (80.0-98.0); NRBC Abs Auto 0.000 X10*3/uL (0.0-0.012); NRBC Pct Auto 0.0 /100WBC (0.0-0.2); Platelet Count 205 X10*3/uL (160-400); Red Blood Count 3.86 X10*6/uL (4.20-5.50); SCAN SMEAR FLAG 1
[2024-10-31 18:24] LABS: Alanine Aminotransferase 18 U/L (0-31); Albumin Level 4.2 g/dL (3.5-5.0); Alkaline Phosphatase 44 U/L (39-117); Anion Gap 11 (12-20); Aspartate Amino Transferase 26 U/L (5-31); Blood Urea Nitrogen 11 mg/dL (9-16); Calcium 8.7 mg/dL (8.4-10.2); Carbon Dioxide 27 mmol/L (22-29); Chloride 106 mmol/L (96-108); Estimated Glomerular Filt Rate > 60; Iron 49 mcg/dL (30-160); Percent Iron Saturation 19 % (15-50); Potassium 4.2 mmol/L (3.3-5.1); Sodium 140 mmol/L (135-145); Total Iron Binding Capacity 260 mcg/dL (228-428); Total Protein 7.1 g/dL (6.5-8.0); Unsaturated Iron Binding 211 ug/dL
[2024-10-31 18:40] LABS: Ferritin 14 ng/mL (10-122)
[2024-10-31 19:50] LABS: Free T4 (Free Thyroxine) 0.80 ng/dL (0.71-1.85)
[2024-11-05 12:43] LABS: Vitamin D 25-OH, D2 5 ng/mL; Vitamin D 25-OH, D3 21 ng/mL; Vitamin D 25-OH, Total 26 ng/mL (30-100)
== END 2024-10-31 11:28 | disposition home or self-care (01) ==
LOC: HO.HKASLDS 11:27
PROVIDERS: PCP Internal Medicine Hematology & Oncology; Visit Provider Nurse Practitioner Family
DX: G43.009 Migraine without aura, not intractable, without status migrainosus (principal); R56.9 Unspecified convulsions; G47.9 Sleep disorder, unspecified; Q04.9 Congenital malformation of brain, unspecified; D50.9 Iron deficiency anemia, unspecified; R53.83 Other fatigue
CPT/HCPCS: 36415; 80053; 82306; 82728; 83540; 83921; 84439; 84443; 85025; 85652; 86140; 99212

== ENCOUNTER 2024-10-31 11:27 | Outpatient (AMB) | payer OTHER, SELFPAY ==
--- OUTSIDE RECORDS SUMMARY | 2024-10-31 10:55 | XMS_ITS | Encounter Summary ---
Author Organization [email or web address] [address] Care Team Providers Care Associate Designer Name Role Phone Sheng May MD Primary Care Provider [phone] Reason for Visit * Imaging (Routine) - Authorized Specialty Diagnoses / Procedures Referred By Ducac mustapha Referred To Contact Radiology Diagnoses Mass of upper outer quadrant of left breast Procedures US Breast Limited Left Joselyn Donnelly PA [address] [place] [address] Phone: tel: fax: [facility] Referral ID Status Reason Start Date Expiration Date V isits Requested Visits Authorized [id number] Authorized 05/03/2024 05/03/2025 1 1 Encounter Details Date Type Department Care Team (Late st Contact Info) Description 10/31/2024 10:55 AM EDT Hospital Encounter Radiology Department - [address] [phone] Social History Tobacco Use Types Packs/Day Years [...] PM EDT documented as of this encounter Plan of Treatment Upcoming Encounters Date Type Department Care Team (Late st Contact Info) Description 11/13/2024 2:00 PM EDT Office Visit Adult Medicine [facility] [place] [address] [place] [phone] Melinda Baron PA [address] [place] [address] Scheduled Orders Name Type Priority Associated Diagnoses Orde r Schedule US Breast Limited Left Imaging Routine Mass of upper outer quadrant of left breast Expected: 05/03/2024, Expires: 05/03/2025 documented as of this encounter Visit Diagnoses Not on filedocumented in this encounter Care Teams Associate Designer Relationship Specialty Start Date End Date Sheng May MD [address] [place] [address] PCP - General Internal Medicine 10/01/21 documented as of this encounter
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
[2024-10-31 11:28] VITALS: BP 126/72; PULSE 88; O2SAT 97; BMI 27.2
== END 2024-10-31 12:11 | disposition home or self-care (01) ==
LOC: HO.HSMS 11:28
PROVIDERS: PCP Internal Medicine Hematology & Oncology; Visit Provider Nurse Practitioner Family
DX: R56.9 Unspecified convulsions (principal); G47.9 Sleep disorder, unspecified; G43.009 Migraine without aura, not intractable, without status migrainosus; Q04.9 Congenital malformation of brain, unspecified; D50.9 Iron deficiency anemia, unspecified
CPT/HCPCS: 99214